=== PATIENT | female | born 1995 | race Caucasian/White ===

== ENCOUNTER 2018-09-02 15:02 | Inpatient (IN) ==
--- OUTSIDE RECORDS SUMMARY | 2018-09-02 15:05 | External Medical Summary | Continuity of Care Document ---
:1995 Author Name Fili Sesay, Provider Address Unavailable Unavailable , Care Team Providers Name Role Phone Unavailable Unavailable Unavailable Asher [email or web address] [email or web address] MUÑOZ M.D., ASHER Chacon Unavailable Unavailable Unavailable Unavailable Unavailable Problems ADD (attention deficit disorder) (314.00) (F98.8) Left hip pain (719.45) (M25.552) Contraceptive use (V25.40) (Z30.40) Fatigue (780.79) (R53.83) Depression with anxiety (300.4) (F41.8) Allergies and Adverse Reactions No Known Drug Allergies (Allergy) Medications Adderall 20 MG Oral Tablet; 1/2 to 1 tablet as needed , M.D. Refills: 0 Nexplanon IMPL , M.D. Refills: 0 Lidocaine 5 % External Patch; APPLY 1 PA TCH TO THE AFFECTED AREA AND LEAVE IN PLACE FOR 12 HOURS, THEN REMOVE AND LEAVE OFF FOR 12 HOURS. MARIKA Castaneda Start: 05-Jan-2018 Quantity: 1 30 Patch Box Refills: 0 Meloxicam 7.5 MG Oral Tablet; TAKE 1 TABLET DAILY WITH FOOD. Lázaro Muñoz Start: 05-Jan-2018 Quantity: 30 Refills: 5 Procedures Vitamin B12 Date: 19-Jul-2018 Vitamin D, 25-Hydroxy Date: 19-Jul-2018 TSH With Reflex to T4 Date: 19-Jul-2018 CBC No Diff Date: 19-Jul-2018 Basic Metabolic Panel Date: 19-Jul-2018 History of Hip Surgery Status: Completed Immunizations Immunizations not documented Family History Mother Family history of Anxiety (300.00) (F41.9) Status: Active Family history of depression (V17.0) (Z81.8) Status: Active Sister Family history of Anxiety (300.00) (F41.9) Status: Active Family history of depression (V17.0) (Z81.8) Status: Active Family history of Utdhqt-sb-vkvh transgender person (3 02.85) (F64.0) Status: Active Father Family history of depression (V17.0) (Z81.8) Status: Active Family history of PTSD (post-traumatic stress disorder) (309 .81) Status: Active (F43.10) Family history of hypertension (V17.49) (Z82.49) Status: Act emerald Family history of hyperlipidemia (V18.19) (Z83.438) Status: Active Social History - Smoking Status Never smoker Plan of Treatment Planned Observations Planned Goals not documented Results No Known Results Results not documented Encounters Appointment; Asher Muñoz M.D. 19-Jul-2018 14:20 Encounter Diagnosis: Problem not documented Appointment; Johanny Castaneda CRNP 05-Jan-2018 14:40 Encounter Diagnosis: Problem not documented
[2018-09-02] MEDS ORDERED: KETOROLAC TROMETHAMINE 15 MG/ML VIAL IV STA (15:48)
[2018-09-02 16:22] LABS: Basophils # (auto) 0.03 K/uL (0-0.2); Basophils % (auto) 0.8 %; Eosinophils # (auto) 0.05 K/uL (0-0.5); Eosinophils % (auto) 1.3 %; Hematocrit (blood only) 38.6 % (37-47); Hemoglobin 13.1 g/dL (12.0-16.0); Immature Granulocytes # (auto) 0.01 K/uL (0.00-0.02); Immature Granulocytes % (auto) 0.3 %; Lymphocytes # (auto) 1.25 K/uL (1.2-3.4); Lymphocytes % (auto) 31.3 %; Mean Corpuscular Hgb Conc 33.9 g/dL (32-36); Mean Corpuscular Volume 92.1 fL (80-100); Mean Platelet Volume 11.1 fL (7.4-10.4); Monocytes # (auto) 0.38 K/uL (0.11-0.59); Monocytes % (auto) 9.5 %; Neutrophils # (auto) 2.28 K/uL (1.4-6.5); Neutrophils % (auto) 56.8 %; Platelet Count 161 K/uL (130-400); RDW Standard Deviation 40.6 fL (36.4-46.3); Red Blood Count 4.19 M/uL (4.2-5.4)
[2018-09-02 16:37] LABS: Appearance Urine Clear (Clear); Bilirubin Urine Negative (Negative); Blood Urine Negative (Negative); Color Urine Yellow; Glucose Urine UA Negative (Negative); Ketones Urine Negative (Negative); Leukocyte Esterase Urine Negative (Negative); Nitrite Urine Negative (Negative); Protein Urine Negative (Negative); Specific Gravity Urine 1.015 (1.000-1.030); Urobilinogen Urine Negative (Negative)
[2018-09-02 16:39] LABS: Albumin Level 4.1 gm/dl (3.4-5.0); BUN Creatinine Ratio 13.9 (10-20); Calcium 9.2 mg/dl (8.5-10.1); Creatinine Clr Calc Pharmacy 122.3 ml/min; Est GFR (African American) 135.2; Est GFR (Non-African American) 116.6; Potassium 3.7 mmol/L (3.5-5.1)
[2018-09-02 16:42] LABS: Albumin Globulin Ratio 1.4 (0.9-2); Bilirubin,Total 0.9 mg/dl (0.2-1); Globulin 2.9 gm/dl (2.5-4.0)
[2018-09-02] MEDS ORDERED: MoRPHine SULFATE 10 MG/ML CARP/VIAL IV STA (19:12)
[2018-09-02] MEDS ORDERED: ONDANSETRON INJ 2 MG/ML 2 ML VIAL IV STA (19:12)
--- NOTE | 2018-09-02 19:17 | Ultrasound Report ---
ULTRASOUND OF THE PELVIS CLINICAL HISTORY: Pelvic pain during intercourse. COMPARISON STUDY: No priors. TECHNIQUE: Real-time, grayscale, and color flow sonography of the pelvis is performed both transabdom inally and endovaginally. Images are reviewed in the transverse and longitudinal planes. The endovagi nal examination was performed for better assessment of the adnexa. FINDINGS: Uterus: The uterus is normal in size and echotexture, measuring 8.4 x 3.7 x 4.2 cm. Endometrium: The endometrium is normal in appearance, and the endometrial stripe is normal in thickne ss measuring up to 0.6 cm. Ovaries: The ovaries are normal in size and morphology. The right ovary measures 3.0 x 2.0 x 2.5 cm a nd the left ovary measures 2.4 x 1.7 x 2.6 cm. There are bilateral ovarian follicles. Normal Doppler waveforms are shown within both ovaries. Pelvis: There is a moderate volume of complex free fluid in the cul-de-sac which appears to be center ed around the right ovary. This likely represents hemoperitoneum. A small volume of fluid is also see n in the abdomen is within Morison's pouch. IMPRESSION: 1. There is a moderate volume of complex free fluid in the pelvis, greatest around the right ovary an d the appearance is typical for hemoperitoneum. This may represent the sequelae of a ruptured hemorrh agic ovarian cyst. Correlation with beta hCG levels will be the essential, as a ruptured ectopic preg jn is the diagnosis of exclusion. 2. The uterus and left ovary are normal in appearance. 3. There is no sonographic evidence of ovarian torsion at the time of examination. Electronically signed by: Bakari Gomez M.D. 09/02/2018 7:16 PM
[2018-09-02 19:42] LABS: Pregnancy Test, Serum Negative (Negative)
[2018-09-02] MEDS ORDERED: fentaNYL citrate 100 MCG/2 ML VIAL IV STA (20:53)
[2018-09-02] MEDS ORDERED: SODIUM CHLORIDE 0.9% 1000ML 1,000 ML IV ONE (20:53)
[2018-09-02 21:11] LABS: Hematocrit (blood only) 34.8 % (37-47); Hemoglobin 11.9 g/dL (12.0-16.0); Mean Corpuscular Hgb Conc 34.2 g/dL (32-36); Mean Corpuscular Volume 92.3 fL (80-100); Mean Platelet Volume 10.8 fL (7.4-10.4); Platelet Count 164 K/uL (130-400); RDW Standard Deviation 40.3 fL (36.4-46.3); Red Blood Count 3.77 M/uL (4.2-5.4); White Blood Count 8.78 K/uL (4.8-10.8)
--- NOTE | 2018-09-02 21:25 | Emergency Department Note ---
History of Present Illness General Chief complaint: Pelvic Injury Stated complaint: VAGINAL PAIN/NAUSEA Source: patient Mode of arrival: ambulatory Limitations: no limitations History of Present Illness Maximum Pain Intensity: 8 This patient is a 22-year-old female who presents to the emergency department complaining of pelvic pain. The patient states that approximately 1 hour prior to arrival, she was having sexual intercourse and developed sharp pains in her vagina and pelvis. She states that it is worsened with any movements and rates the discomfort an 8/10. She states the pains are sharp. The pain does not radiate anywhere. She took 600 mg of ibuprofen prior to arrival. Patient does report she has had similar episodes of pain in the past, but they have gone away on their own. She states that she has seen WHARF TALLY CLERK in the past and they told her that she should be evaluated when she is having acute pain. She denies any history of ovarian cysts or other [employer]ARF TALLY CLERK issues. She did recently have a Nex planon placed. She denies any abnormal vaginal discharge. She states that her periods are typically irregular and she had a period earlier this month. Home Medications Home Medications Medication Instructions Recorded Confirmed Type dextroamphetamine-amphetamine 10 mg PO QAM PRN 09/02/18 09/02/18 History [Adderall XR] etonogestrel [Nexplanon] 0 mg SUBDERMAL DIRECTED 09/02/18 09/02/18 History ibuprofen 600 - 800 mg PO DIRECTED PRN 09/02/18 09/02/18 History meloxicam 7.5 mg PO DAILY PRN 09/02/18 09/02/18 History Allergies Allergy/AdvReac Type Severity Reaction Status Date / Time Milk Containing Products AdvReac Intermediate Gastrointestinal Verified 09/02/18 16:40 Upset Pork/Porcine Containing AdvReac Intermediate Gastrointestinal Verified 09/02/18 16:40 Products Upset Past Med/Surg History Medical History No known health problems Family History Other Family history non-contributory Social History marital status: single Current Living Situation: Other Current Living Situation Comment: Roomates current occupational status: student Feels Safe at Home: Yes Smoking Status: Never smoker Review of Systems A total of 10 systems reviewed and were otherwise negative Physical Exam Vital Signs Vital Signs - 24 hr 09/02/18 15:17 09/02/18 18:33 09/02/18 20:42 Temperature 36.6 C Temperature Source Oral Sepsis Recent Fever Within 48 Hours No Sepsis New/Unexplained Change in Mental Status No Sepsis Action Taken by Nursing No Action Required Pulse Rate 86 Pulse Rate [Finger] 78 71 Pulse Rate from SpO2 Sensor Pulse Rhythm Regular Pulse Strength Normal Respiratory Rate 20 18 Respiratory Effort / Characteristics Non-Labored Spontaneous Respiratory Depth Normal Respiratory Pattern Regular Blood Pressure 117/82 Blood Pressure [Right Arm] 107/63 106/68 Blood Pressure Mean 93 Blood Pressure Mean [Right Arm] 77 80 Pulse Oximetry 100 100 98 Oxygen Delivery Method Room Air Room Air Room Air 09/02/18 20:51 09/02/18 20:54 09/02/18 20:57 Temperature Temperature Source Sepsis Recent Fever Within 48 Hours Sepsis New/Unexplained Change in Mental Status Sepsis Action Taken by Nursing Pulse Rate Pulse Rate [Finger] 62 69 75 Pulse Rate from SpO2 Sensor Pulse Rhythm Pulse Strength Respiratory Rate 14 16 18 Respiratory Effort / Characteristics Respiratory Depth Respiratory Pattern Blood Pressure Blood Pressure [Right Arm] 93/49 L 105/64 105/64 Blood Pressure Mean Blood Pressure Mean [Right Arm] 63 77 77 Pulse Oximetry 98 98 98 Oxygen Delivery Method Room Air 09/02/18 21:00 09/02/18 22:00 09/02/18 23:25 Temperature Temperature Source Sepsis Recent Fever Within 48 Hours Sepsis New/Unexplained Change in Mental Status Sepsis Action Taken by Nursing Pulse Rate 79 Pulse Rate [Finger] 74 Pulse Rate from SpO2 Sensor 74 Pulse Rhythm Pulse Strength Respiratory Rate 19 15 15 Respiratory Effort / Characteristics Respiratory Depth Respiratory Pattern Blood Pressure 113/75 Blood Pressure [Right Arm] 104/75 Blood Pressure Mean 87 Blood Pressure Mean [Right Arm] 84 Pulse Oximetry 99 96 96 Oxygen Delivery Method Room Air Room Air VITALS: Vitals are noted on the nurse's note and reviewed by myself. Vital signs stable. GENERAL: This is a 22-year-old female, in mild distress secondary to pain, well- developed well-nourished. SKIN: The skin was without rashes. EYES: Pupils equal round and reactive to light and accommodation. MOUTH: Mucous membranes moist. NECK: Supple without nuchal rigidity. HEART: Regular rate and rhythm without murmurs gallops or rubs. LUNGS: Clear to auscultation bilaterally without wheezes, rales or rhonchi. ABDOMEN: Positive bowel sounds x 4. Moderate tenderness across lower abdomen. No guarding or rebound tenderness. PELVIC: Small amount of white vaginal discharge. No evidence of cervicitis. Tenderness throughout the lower abdomen on bimanual exam. NEURO: Patient was alert and oriented to person place and time. Course Reevaluation(s) Reevaluation #1: The patient was reevaluated after returning from ultrasound. At this time, she had developed severely worsening pain. She was lying flat in bed and reported that the pain was radiating to her right shoulder. Patient was ordered a dose of morphine and Zofran for this. Reevaluation #2: Patient was reevaluated after receiving the morphine and reports she is feeling slightly better, but is still having pain which is radiating into both sides of her chest. Pelvic exam was performed at this time. Reevaluation #3: I was contacted by nursing staff who stated that the patient had a presyncopal episode. Patient was reevaluated by myself. She stated that she became lightheaded and felt like she was going to pass out. The patient's blood pressure did briefly drop to 93/49 but on recheck was 105/64. An additional liter of fluids was ordered as well as a dose of fentanyl for the patient's pain. A repeat CBC was ordered. Consultations Consultation #1: Dr. Fuentes - WHAR[facility] TALLY CLERK Dr. Fuentes will evaluate the patient for admission/possible surgical intervention. Administered Medications Discontinued Medications Fentanyl Citrate (Fentanyl Citrate) 50 mcg IV NOW STA Stop: 09/02/18 20:54 Last Admin: 09/02/18 21:06 Dose: 50 mcg Documented by: [id number] Sodium Chloride (Nss 1000ml) 1,000 mls @ 999 mls/hr IV .Q1H1M ONE Stop: 09/02/18 21:53 Last Infusion: 09/02/18 22:22 Dose: 0 mls/hr Documented by: [id number] Admin: 09/02/18 21:07 Dose: 999 mls/hr Documented by: [id number] Ketorolac Tromethamine (Toradol) 15 mg IV NOW STA Stop: 09/02/18 15:49 Last Admin: 09/02/18 16:05 Dose: 15 mg Documented by: [id number] Morphine Sulfate (Morphine Sulfate) 6 mg IV NOW STA Stop: 09/02/18 19:13 Last Admin: 09/02/18 19:18 Dose: 6 mg Documented by: [id number] Ondansetron HCl (Zofran) 4 mg IV NOW STA Stop: 09/02/18 19:13 Last Admin: 09/02/18 19:19 Dose: 4 mg Documented by: [id number] Medical Decision Making Differential Diagnosis Differential diagnosis includes ruptured ectopic , ovarian cyst, ruptured ovarian cyst, ovarian torsion, PID, appendicitis, diverticulitis, among others. Home Medications Current Medication List: was personally reviewed by me Laboratory Data Attestation: I reviewed the patient's lab results. Result diagrams: 09/02/18 21:05 09/02/18 16:07 Lab Results 09/02/18 09/02/18 09/02/18 Range/Units 16:07 16:07 16:07 WBC 4.00 L (4.8-10.8) K/uL RBC 4.19 L (4.2-5.4) M/uL Hgb 13.1 (12.0-16.0) g/dL Hct 38.6 (37-47) % MCV 92.1 (80-100) fL MCH 31.3 (25-34) pg MCHC 33.9 (32-36) g/dL RDW Std Deviation 40.6 (36.4-46.3) fL RDW Coeff of Tyler 12.0 (11.5-14.5) % Plt Count 161 (130-400) K/uL MPV 11.1 H (7.4-10.4) fL Immature Gran % (Auto) 0.3 % Neut % (Auto) 56.8 % Lymph % (Auto) 31.3 % Rogers % (Auto) 9.5 % Eos % (Auto) 1.3 % Baso % (Auto) 0.8 % Immature Gran # (Auto) 0.01 (0.00-0.02) K/uL Neut # (Auto) 2.28 (1.4-6.5) K/uL Lymph # (Auto) 1.25 (1.2-3.4) K/uL Rogers # (Auto) 0.38 (0.11-0.59) K/uL Eos # (Auto) 0.05 (0-0.5) K/uL Baso # (Auto) 0.03 (0-0.2) K/uL Sodium 140 (136-145) mmol/L Potassium 3.7 (3.5-5.1) mmol/L Chloride 109 H (98-107) mmol/L Carbon Dioxide 24 (21-32) mmol/L Anion Gap 7.0 (3-11) BUN 10 (7-18) mg/dl Creatinine 0.74 (0.6-1.2) mg/dl Est Cr Clr Drug Dosing 122.3 ml/min Est GFR ( Amer) 135.2 Est GFR (Non-Af Amer) 116.6 BUN/Creatinine Ratio 13.9 (10-20) Glucose 62 L (70-99) mg/dl Calcium 9.2 (8.5-10.1) mg/dl Total Bilirubin 0.9 (0.2-1) mg/dl AST 22 (15-37) U/L ALT 30 (12-78) U/L Alkaline Phosphatase 53 (45-117) U/L Total Protein 7.0 (6.4-8.2) gm/dl Albumin 4.1 (3.4-5.0) gm/dl Globulin 2.9 (2.5-4.0) gm/dl Albumin/Globulin Ratio 1.4 (0.9-2) HCG, Qual (Negative) Urine Color Yellow Urine Appearance Clear (Clear) Urine pH 8.0 H (4.5-7.5) Ur Specific Carson 1.015 (1.000-1.030) Urine Protein Negative (Negative) Urine Glucose (UA) Negative (Negative) Urine Ketones Negative (Negative) Urine Blood Negative (Negative) Urine Nitrite Negative (Negative) Urine Bilirubin Negative (Negative) Urine Urobilinogen Negative (Negative) Ur Leukocyte Esterase Negative (Negative) POC Ur Test (NEG) Blood Type Antibody Screen Crossmatch 09/02/18 09/02/18 09/02/18 Range/Units 16:08 21:05 21:55 WBC 8.78 (4.8-10.8) K/uL RBC 3.77 L (4.2-5.4) M/uL Hgb 11.9 L (12.0-16.0) g/dL Hct 34.8 L (37-47) % MCV 92.3 (80-100) fL MCH 31.6 (25-34) pg MCHC 34.2 (32-36) g/dL RDW Std Deviation 40.3 (36.4-46.3) fL RDW Coeff of Tyler 12.0 (11.5-14.5) % Plt Count 164 (130-400) K/uL MPV 10.8 H (7.4-10.4) fL Immature Gran % (Auto) % Neut % (Auto) % Lymph % (Auto) % Rogers % (Auto) % Eos % (Auto) % Baso % (Auto) % Immature Gran # (Auto) (0.00-0.02) K/uL Neut # (Auto) (1.4-6.5) K/uL Lymph # (Auto) (1.2-3.4) K/uL Rogers # (Auto) (0.11-0.59) K/uL Eos # (Auto) (0-0.5) K/uL Baso # (Auto) (0-0.2) K/uL Sodium (136-145) mmol/L Potassium (3.5-5.1) mmol/L Chloride (98-107) mmol/L Carbon Dioxide (21-32) mmol/L Anion Gap (3-11) BUN (7-18) mg/dl Creatinine (0.6-1.2) mg/dl Est Cr Clr Drug Dosing ml/min Est GFR ( Amer) Est GFR (Non-Af Amer) BUN/Creatinine Ratio (10-20) Glucose (70-99) mg/dl Calcium (8.5-10.1) mg/dl Total Bilirubin (0.2-1) mg/dl AST (15-37) U/L ALT (12-78) U/L Alkaline Phosphatase (45-117) U/L Total Protein (6.4-8.2) gm/dl Albumin (3.4-5.0) gm/dl Globulin (2.5-4.0) gm/dl Albumin/Globulin Ratio (0.9-2) HCG, Qual Negative (Negative) Urine Color Urine Appearance (Clear) Urine pH (4.5-7.5) Ur Specific Carson (1.000-1.030) Urine Protein (Negative) Urine Glucose (UA) (Negative) Urine Ketones (Negative) Urine Blood (Negative) Urine Nitrite (Negative) Urine Bilirubin (Negative) Urine Urobilinogen (Negative) Ur Leukocyte Esterase (Negative) POC Ur Test (NEG) Blood Type O Positive Antibody Screen NEGATIVE Crossmatch See Detail 09/02/18 Range/Units Unknown WBC (4.8-10.8) K/uL RBC (4.2-5.4) M/uL Hgb (12.0-16.0) g/dL Hct (37-47) % MCV (80-100) fL MCH (25-34) pg MCHC (32-36) g/dL RDW Std Deviation (36.4-46.3) fL RDW Coeff of Tyler (11.5-14.5) % Plt Count (130-400) K/uL MPV (7.4-10.4) fL Immature Gran % (Auto) % Neut % (Auto) % Lymph % (Auto) % Rogers % (Auto) % Eos % (Auto) % Baso % (Auto) % Immature Gran # (Auto) (0.00-0.02) K/uL Neut # (Auto) (1.4-6.5) K/uL Lymph # (Auto) (1.2-3.4) K/uL Rogers # (Auto) (0.11-0.59) K/uL Eos # (Auto) (0-0.5) K/uL Baso # (Auto) (0-0.2) K/uL Sodium (136-145) mmol/L Potassium (3.5-5.1) mmol/L Chloride (98-107) mmol/L Carbon Dioxide (21-32) mmol/L Anion Gap (3-11) BUN (7-18) mg/dl Creatinine (0.6-1.2) mg/dl Est Cr Clr Drug Dosing ml/min Est GFR ( Amer) Est GFR (Non-Af Amer) BUN/Creatinine Ratio (10-20) Glucose (70-99) mg/dl Calcium (8.5-10.1) mg/dl Total Bilirubin (0.2-1) mg/dl AST (15-37) U/L ALT (12-78) U/L Alkaline Phosphatase (45-117) U/L Total Protein (6.4-8.2) gm/dl Albumin (3.4-5.0) gm/dl Globulin (2.5-4.0) gm/dl Albumin/Globulin Ratio (0.9-2) HCG, Qual (Negative) Urine Color Urine Appearance (Clear) Urine pH (4.5-7.5) Ur Specific Carson (1.000-1.030) Urine Protein (Negative) Urine Glucose (UA) (Negative) Urine Ketones (Negative) Urine Blood (Negative) Urine Nitrite (Negative) Urine Bilirubin (Negative) Urine Urobilinogen (Negative) Ur Leukocyte Esterase (Negative) POC Ur Test NEG (NEG) Blood Type Antibody Screen Crossmatch Imaging Data Attestation: I personally reviewed and interpreted this imaging study as follows: Radiologist's Impression: ULTRASOUND OF THE PELVIS FINDINGS: Uterus: The uterus is normal in size and echotexture, measuring 8.4 x 3.7 x 4.2 cm. Endometrium: The endometrium is normal in appearance, and the endometrial stripe is normal in thickness measuring up to 0.6 cm. Ovaries: The ovaries are normal in size and morphology. The right ovary measures 3.0 x 2.0 x 2.5 cm and the left ovary measures 2.4 x 1.7 x 2.6 cm. There are bilateral ovarian follicles. Normal Doppler waveforms are shown within both ovaries. Pelvis: There is a moderate volume of complex free fluid in the cul-de-sac which appears to be centered around the right ovary. This likely represents hemoperitoneum. A small volume of fluid is also seen in the abdomen is within Morison's pouch. IMPRESSION: 1. There is a moderate volume of complex free fluid in the pelvis, greatest around the right ovary and the appearance is typical for hemoperitoneum. This may represent the sequelae of a ruptured hemorrhagic ovarian cyst. Correlation with beta hCG levels will be the essential, as a ruptured ectopic is the diagnosis of exclusion. 2. The uterus and left ovary are normal in appearance. 3. There is no sonographic evidence of ovarian torsion at the time of examination. Blood Pressure Blood Pressure Findings: Normal blood pressure MDM Narrative The patient is a 22-year-old female who presents today complaining of severe pelvic pain. Labs revealed no leukocytosis, anemia or concerning electrolyte abnormalities. Urinalysis not suggestive of infection, urine test negative. Pelvic ultrasound was obtained and reveals evidence of a ruptured hemorrhagic ovarian cyst. The patient had worsening pain throughout her stay as well as referred pain to the shoulder and had a presyncopal episode. H&H were repeated at this time and the hemoglobin was found to have dropped from 13.1- 11.9. [facility] TALLY CLERK was consulted at this time to evaluate the patient for admission/possible surgical intervention. I did speak with the patient's mother to explain to her all of the findings so far as well as the treatment plan. Impression & Plan Hemoperitoneum, Pelvic pain Discharge Plan Visit Data *Final* Discharge Date/Time: 09/02/18 23:47 Chief Complaint: Pelvic Injury Stated Complaint: VAGINAL PAIN/NAUSEA ED Provider: Horacio De Anda ED Midlevel Provider: Jazz Kunz Discharge Problem: Hemoperitoneum, Pelvic pain Patient Disposition: Admitted As Inpatient Discharge Instructions Interventions: ED Discharge Assessment Last Done: 09/02/18 23:25
[2018-09-02] MEDS ORDERED: SODIUM CHLORIDE 0.9% 250 ML IV PRN (21:36)
--- NOTE | 2018-09-02 23:08 | Anesthesiology Consultation ---
Date of Service September 02, 2018 History Height/Weight Height: 5 ft 8 in Weight: 68.7 kg Allergies Allergy/AdvReac Type Severity Reaction Status Date / Time Milk Containing Products AdvReac Intermediate Gastrointestinal Verified 09/02/18 16:40 Upset Pork/Porcine Containing AdvReac Intermediate Gastrointestinal Verified 09/02/18 16:40 Products Upset Medications Home Medications Medication Instructions Recorded Confirmed Last Taken dextroamphetamine-amphetamine 10 mg PO QAM PRN 09/02/18 09/02/18 Unknown [Adderall XR] etonogestrel [Nexplanon] 0 mg SUBDERMAL DIRECTED 09/02/18 09/02/18 Unknown ibuprofen 600 - 800 mg PO DIRECTED PRN 09/02/18 09/02/18 09/02/18 14:30 meloxicam 7.5 mg PO DAILY PRN 09/02/18 09/02/18 Unknown Past Medical History Medical History No known health problems Past Family History Family History Other Family history non-contributory Social History Smoking Status: Never smoker Physical Exam Vital Signs Last Vital Signs Temp 36.6 C 09/02/18 15:17 Pulse 74 09/02/18 22:00 Resp 15 09/02/18 22:00 BP 104/75 09/02/18 22:00 Pulse Ox 96 09/02/18 22:00
[2018-09-02] MEDS ORDERED: ONDANSETRON INJ 2 MG/ML 2 ML VIAL IV PRN (23:14)
[2018-09-02] MEDS ORDERED: LACTATED RINGER'S 1,000 ML IV SCH (23:15)
[2018-09-02] MEDS ORDERED: MIDAZOLAM HCL 1 MG/ML 2ML VIAL ONE (23:23)
[2018-09-02] MEDS ORDERED: fentaNYL citrate 100 MCG/2 ML VIAL ONE ×2 (23:24)
[2018-09-02] MEDS ORDERED: LIDOCAINE HCL 2% 2 ML VIAL/AMP(20MG/ML) INFIL ONE (23:28)
[2018-09-02] MEDS ORDERED: PROPOFOL IV EMULSION 10 MG/ML 20 ML VIAL IV ONE (23:29)
[2018-09-02] MEDS ORDERED: NEOSTIGMINE METHYLSULFATE 5 MG/5 ML SYR ONE (23:29)
[2018-09-02] MEDS ORDERED: ROCURONIUM BROMIDE 10 MG/ML 5 ML VIAL ONE (23:29)
[2018-09-02] MEDS ORDERED: ONDANSETRON INJ 2 MG/ML 2 ML VIAL ONE (23:29)
[2018-09-02] MEDS ORDERED: DEXAMETHASONE SOD INJ 4 MG/ML VIAL ONE (23:29)
[2018-09-02] MEDS ORDERED: GLYCOPYRROLATE 0.2 MG/ML VIAL ONE (23:29)
[2018-09-02] MEDS ORDERED: BUPIVACAINE 0.5 % 5 MG/1 ML MPF 30ML VIAL ONE (23:31)
--- NOTE | 2018-09-02 23:56 | History and Physical Report ---
DATE OF ADMISSION: 09/02/2018 CHIEF COMPLAINT: Pelvic pain and abdominal pain. HISTORY OF PRESENT ILLNESS: The patient is a 22-year-old female 0, para 0 who presents today after having pain that developed at approximately 1:00 this afternoon after experiencing a sudden onset of pain after and during intercourse. The pain worsened becoming an 8/10 on a pain scale. She took Motrin prior to arrival, but this did not relieve her pain. She has had several episodes of pain like this in the past with no treatment at that time. She does not have any problems with any nausea or vomiting. Her blood pressure has been stable. She did have a significant amount of pain that was relieved temporarily with some fentanyl; however, the pain subsequently returned. Her test was negative. Her hemoglobin initially was 13.1, hematocrit 38.6, and a white count of 4.0. Her hemoglobin dropped on observation with IV fluids to 11.9 and 34.8. Social History: non-smoker, denies alcohol, occasional marijuana Family History: non-contributor Allergies: Milk, pork Surgery: left hip Urine was negative. Her GC chlamydia cultures were negative. There was no vaginal bleeding. Her electrolytes are all within normal limits. Ultrasound reveals normal size uterus, normal endometrium, the ovaries both measure normal. No evidence of torsion. There is a moderate amount of fluid, complex free fluid in the cul-de-sac, mostly around the right ovary, possible hemoperitoneum with blood, small amount of fluid that is seen in the abdomen within Morison's pouch. PHYSICAL EXAMINATION: VITAL SIGNS: Her vitals are stable. She is afebrile. Her blood pressure is 104/75, her pulse ox is 96 on room air, her pulse is 74. GENERAL: She is in visible discomfort. She is alert and oriented x3. ABDOMEN: Tender in all 4 quadrants with guarding, no rebound. EXTREMITIES: Within normal limits. No edema. HEART: Regular rate and rhythm. LUNGS: Clear to auscultation. ASSESSMENT: Probable ruptured hemorrhagic corpus luteum cyst. PLAN: We will go to the OR with operative laparoscopy for evacuation of hemoperitoneum and control of any bleeding from an ovary. KELLEE
[2018-09-03] MEDS ORDERED: ACETAMINOPHEN 1,000 MG/100 ML VIAL IV PRN (01:36)
[2018-09-03] MEDS ORDERED: OXYCODONE/ACETAMINOPHEN 5mg/325mg TAB PO PRN (01:36)
[2018-09-03] MEDS ORDERED: KETOROLAC 30 MG/ML VIAL IV PRN (01:36)
[2018-09-03] MEDS ORDERED: IBUPROFEN 600 MG TAB PO PRN (01:36)
[2018-09-03] MEDS ORDERED: MoRPHine SULFATE 2 MG/ML CARP IV PRN (01:36)
[2018-09-03] MEDS ORDERED: MoRPHine SULFATE 4 MG/ML 1 ML CARP\\VIAL IV PRN (01:36)
[2018-09-03] MEDS ORDERED: ACETAMINOPHEN 325 MG TAB PO PRN (01:36)
--- NOTE | 2018-09-03 01:42 | Post Operative Brief Note ---
Immediate Post Op Note v1 Date of Surgery September 03, 2018 Pre & Post Diagnosis Operation Date: 09/02/18 23:30 Pre-Op Diagnosis: Probable ruptured hemorrhagic corpus luteum cyst, hemoperitoneum Post-Op Diagnosis: ruptured hemorrhagic corpus luteum cyst, hemoperitoneum Procedure Operation Date: 09/02/18 23:30 Actual Procedures p Diagnostic Laparoscopy, Evacuation of hematoperitenoum(Not Applicable) - Ismael Fuentes MD Surgeon Ismael Fuentes MD Dialysis Technician none Estimated Blood Loss 400 Findings Consistent with Post-Op Diagnosis Drains Carpenter Catheter
[2018-09-03] MEDS ORDERED: LACTATED RINGER'S 1,000 ML IV SCH (01:45)
--- NOTE | 2018-09-03 03:06 | Operative Report ---
DATE OF OPERATION: 09/03/2018 PREOPERATIVE DIAGNOSIS: Abdominal pain, probable ruptured ovarian corpus luteum cyst and hemoperitoneum. POSTOPERATIVE DIAGNOSIS: Abdominal pain, probable ruptured ovarian corpus luteum cyst and hemoperitoneum, hemorrhagic corpus luteum cyst with hemoperitoneum. SURGEON: Ismael Fuentes MD EXTENDED INSURANCE CLERK: None. ANESTHESIA: General. ESTIMATED BLOOD LOSS: 400 mL. URINE OUTPUT: 500 mL. TOTAL FLUIDS: 500 mL. CLINICAL HISTORY: The patient is a 22-year-old female 0, para 0, presents to the ER after having noted abdominal pain and pelvic pain approximately 1:00 p.m. yesterday following intercourse. The patient presented to the ER, she was given some pain medication and the pain resolved and then began to come back. Ultrasound revealed fluid in the abdomen consistent with a hemoperitoneum. The patient was consented for a surgical procedure including a laparoscopy, possible right ovarian removal and possible laparotomy. A timeout was called prior to the start of the procedure and no antibiotics were given. DESCRIPTION OF PROCEDURE: Under satisfactory general anesthesia, the patient was prepped and draped in usual sterile fashion. Carpenter catheter was placed and a single tooth tenaculum was then placed on the anterior lip of the cervix and acorn intracervical uterine manipulator was then used. Attention was then directed abdominally. Approximately 5 mL of 0.5% Marcaine were instilled suprapubically and infraumbilically. Stab wound was made with a #15 knife blade and a 5 mm trocar under direct visualization was inserted. The contents of the pelvic and abdominal cavity were noted to contain a significant amount of blood including blood up to the liver edge. The patient was placed in slight Trendelenburg position. A midline 5 mm probe was then inserted and the suction journeyman patternmaker was then used to suction out copious amounts of blood and irrigation. The ovary on the right contained a hemorrhagic cyst and a bipolar cautery was then used. A third trocar was inserted on the left hand side and using the grasper, the ovary was grasped and the bipolar Kleppingers were then used to cauterize the bleeding point. The contents of the pelvic cavity were then suctioned and irrigated to clear. The patient was stable. 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 All remaining instruments were then removed. The gas was then allowed to escape. The 3 incisions were then closed with 3-0 deep sutures for the fascia followed by 4-0 Monocryl suture. The vaginal instruments were then removed. The patient was then placed flat. She was transferred to a stretcher in stable condition. EBL 500 mL. She was taken to recovery room in stable condition. I attest to the content of the Intraoperative Record and any orders documented therein. Any exception s are noted below.
[2018-09-03] MEDS ORDERED: MELOXICAM 7.5 MG TAB PO PRN (04:20)
--- NOTE | 2018-09-03 07:13 | Anesthesiology Progress Note ---
Date of Service September 03, 2018 Anesthesia Post Procedure Vital Signs Vital Signs: Temp Pulse Pulse Pulse Pulse Resp BP 09/03/18 05:45 37 C 108 H 18 09/03/18 04:43 37 C 86 18 09/03/18 03:40 37.1 C 73 18 09/03/18 03:10 37 C 78 18 09/03/18 02:40 36.4 C L 73 18 09/03/18 02:25 36.8 C 63 14 09/03/18 02:15 60 16 09/03/18 02:05 62 14 09/03/18 01:55 78 15 09/03/18 01:47 36.2 C L 79 20 09/02/18 23:25 15 09/02/18 22:00 74 15 09/02/18 21:00 79 19 113/75 09/02/18 20:57 75 18 09/02/18 20:54 69 16 09/02/18 20:51 62 14 09/02/18 20:42 71 09/02/18 18:33 78 18 09/02/18 15:17 36.6 C 86 20 117/82 BP BP Pulse Ox 09/03/18 05:45 103/54 L 98 09/03/18 04:43 104/58 L 98 09/03/18 03:40 115/61 100 09/03/18 03:10 113/65 100 09/03/18 02:40 113/62 100 09/03/18 02:25 109/63 100 09/03/18 02:15 110/62 100 09/03/18 02:05 111/66 100 09/03/18 01:55 134/69 100 09/03/18 01:47 122/89 98 09/02/18 23:25 96 09/02/18 22:00 104/75 96 09/02/18 21:00 99 09/02/18 20:57 105/64 98 09/02/18 20:54 105/64 98 09/02/18 20:51 93/49 L 98 09/02/18 20:42 106/68 98 09/02/18 18:33 107/63 100 09/02/18 15:17 100 Pain Intensity Vaginal: Pain Intensity: 8 Abdomen: Pain Intensity: 5 Transfer of Care Handoff Completed per policy Notes Mental Status: alert / awake / arousable and participated in evaluation Patient Amnestic to Procedure: Yes Nausea / Vomiting: adequately controlled Pain: adequately controlled Airway Patency, RR, SpO2: stable & adequate BP & HR: stable & adequate Hydration State: stable & adequate Anesthetic Complications: no major complications apparent
--- NOTE | 2018-09-03 07:18 | Surgery Progress Note ---
Date of Service September 03, 2018 Subjective much less pain slept through night passing gas tolerating liquids Carpenter clear urine with good output Physical Exam Constitutional: WD/WN, vitals as above comfortable Gastrointestinal (Abdomen): incisions dry/intact abdomen soft non-tender ne edema neg Pearl's CBC pending tent d/c after lunch today Results & Data Vital Signs (Past 12 Hours) Vital Signs Temp Pulse Pulse Pulse Pulse Resp BP 09/03/18 05:45 37 C 108 H 18 09/03/18 04:43 37 C 86 18 09/03/18 03:40 37.1 C 73 18 09/03/18 03:10 37 C 78 18 09/03/18 02:40 36.4 C L 73 18 09/03/18 02:25 36.8 C 63 14 09/03/18 02:15 60 16 09/03/18 02:05 62 14 09/03/18 01:55 78 15 09/03/18 01:47 36.2 C L 79 20 09/02/18 23:25 15 09/02/18 22:00 74 15 09/02/18 21:00 79 19 113/75 09/02/18 20:57 75 18 09/02/18 20:54 69 16 09/02/18 20:51 62 14 09/02/18 20:42 71 BP BP Pulse Ox 09/03/18 05:45 103/54 L 98 09/03/18 04:43 104/58 L 98 09/03/18 03:40 115/61 100 09/03/18 03:10 113/65 100 09/03/18 02:40 113/62 100 09/03/18 02:25 109/63 100 09/03/18 02:15 110/62 100 09/03/18 02:05 111/66 100 09/03/18 01:55 134/69 100 09/03/18 01:47 122/89 98 09/02/18 23:25 96 09/02/18 22:00 104/75 96 09/02/18 21:00 99 09/02/18 20:57 105/64 98 09/02/18 20:54 105/64 98 09/02/18 20:51 93/49 L 98 09/02/18 20:42 106/68 98
[2018-09-03 09:02] LABS: Hematocrit (blood only) 28.7 % (37-47); Hemoglobin 9.8 g/dL (12.0-16.0); Mean Corpuscular Hgb Conc 34.1 g/dL (32-36); Mean Corpuscular Volume 92.9 fL (80-100); Mean Platelet Volume 10.6 fL (7.4-10.4); Platelet Count 165 K/uL (130-400); RDW Coefficient of Variation 12.1 % (11.5-14.5); Red Blood Count 3.09 M/uL (4.2-5.4)
[2018-09-03] MEDS: OXYCODONE/ACETAMINOPHEN 5mg/325mg TAB PO PRN ×2 (09:13→13:07)
--- NOTE | 2018-09-03 11:02 | Anesthesiology Progress Note ---
Date of Service September 03, 2018 Anesthesia Post Procedure Vital Signs Vital Signs: Temp Pulse Pulse Pulse Pulse Resp BP 09/03/18 07:28 37.1 C 72 16 09/03/18 05:45 37 C 108 H 18 09/03/18 04:43 37 C 86 18 09/03/18 03:40 37.1 C 73 18 09/03/18 03:10 37 C 78 18 09/03/18 02:40 36.4 C L 73 18 09/03/18 02:25 36.8 C 63 14 09/03/18 02:15 60 16 09/03/18 02:05 62 14 09/03/18 01:55 78 15 09/03/18 01:47 36.2 C L 79 20 09/02/18 23:25 15 09/02/18 22:00 74 15 09/02/18 21:00 79 19 113/75 09/02/18 20:57 75 18 09/02/18 20:54 69 16 09/02/18 20:51 62 14 09/02/18 20:42 71 09/02/18 18:33 78 18 09/02/18 15:17 36.6 C 86 20 117/82 BP BP Pulse Ox 09/03/18 07:28 110/60 09/03/18 05:45 103/54 L 98 09/03/18 04:43 104/58 L 98 09/03/18 03:40 115/61 100 09/03/18 03:10 113/65 100 09/03/18 02:40 113/62 100 09/03/18 02:25 109/63 100 09/03/18 02:15 110/62 100 09/03/18 02:05 111/66 100 09/03/18 01:55 134/69 100 09/03/18 01:47 122/89 98 09/02/18 23:25 96 09/02/18 22:00 104/75 96 09/02/18 21:00 99 09/02/18 20:57 105/64 98 09/02/18 20:54 105/64 98 09/02/18 20:51 93/49 L 98 09/02/18 20:42 106/68 98 09/02/18 18:33 107/63 100 09/02/18 15:17 100 Pain Intensity Vaginal: Pain Intensity: 8 Abdomen: Pain Intensity: 5 Transfer of Care Handoff Completed per policy Notes Mental Status: alert / awake / arousable Patient Amnestic to Procedure: Yes Nausea / Vomiting: adequately controlled Pain: adequately controlled Airway Patency, RR, SpO2: stable & adequate BP & HR: stable & adequate Hydration State: stable & adequate Anesthetic Complications: no major complications apparent Notes: POD #1 doing well. VSS
[2018-09-03 12:30] LABS: Hematocrit (blood only) 28.7 % (37-47)
--- NOTE | 2018-09-03 13:11 | Obstetrical Progress Note ---
Date of Service September 03, 2018 Subjective Postop check Patient is seen and examined Feels well, no complaints Pain is under control with meds No CP/ SOB/ Dizziness/ N&V/ VB/ Leg pain OOB to BR and hallway Tolerating regular diet Multiple questions about surgery incisions Explained about the surgery and findings per op note Discussed postop care, what to expect, when to call and f/u visit Vital Signs Temp Pulse Pulse Resp BP Pulse Ox 09/03/18 07:28 37.1 C 72 16 110/60 09/03/18 05:45 37 C 108 H 18 103/54 L 98 09/03/18 04:43 37 C 86 18 104/58 L 98 09/03/18 03:40 37.1 C 73 18 115/61 100 09/03/18 03:10 37 C 78 18 113/65 100 09/03/18 02:40 36.4 C L 73 18 113/62 100 09/03/18 02:25 36.8 C 63 14 109/63 100 09/03/18 02:15 60 16 110/62 100 09/03/18 02:05 62 14 111/66 100 09/03/18 01:55 78 15 134/69 100 09/03/18 01:47 36.2 C L 79 20 122/89 98 09/03/18 09/03/18 09/02/18 Range/Units 12:20 08:49 Unknown WBC 5.30 (4.8-10.8) K/uL RBC 3.09 L (4.2-5.4) M/uL Hgb 10.0 L 9.8 L (12.0-16.0) g/dL Hct 28.7 L 28.7 L (37-47) % MCV 92.9 (80-100) fL MCH 31.7 (25-34) pg MCHC 34.1 (32-36) g/dL RDW Std Deviation 41.0 (36.4-46.3) fL RDW Coeff of [place] 12.1 (11.5-14.5) % Plt Count 165 (130-400) K/uL MPV 10.6 H (7.4-10.4) fL Immature Gran % (Auto) % Neut % (Auto) % Lymph % (Auto) % [place] % (Auto) % Eos % (Auto) % Baso % (Auto) % Immature Gran # (Auto) (0.00-0.02) K/uL Neut # (Auto) (1.4-6.5) K/uL Lymph # (Auto) (1.2-3.4) K/uL [place] # (Auto) (0.11-0.59) K/uL Eos # (Auto) (0-0.5) K/uL Baso # (Auto) (0-0.2) K/uL Sodium (136-145) mmol/L Potassium (3.5-5.1) mmol/L Chloride (98-107) mmol/L Carbon Dioxide (21-32) mmol/L Anion Gap (3-11) BUN (7-18) mg/dl Creatinine (0.6-1.2) mg/dl Est Cr Clr Drug Dosing ml/min Est GFR ( Amer) Est GFR (Non-Af Amer) BUN/Creatinine Ratio (10-20) Glucose (70-99) mg/dl Calcium (8.5-10.1) mg/dl Total Bilirubin (0.2-1) mg/dl AST (15-37) U/L ALT (12-78) U/L Alkaline Phosphatase (45-117) U/L Total Protein (6.4-8.2) gm/dl Albumin (3.4-5.0) gm/dl Globulin (2.5-4.0) gm/dl Albumin/Globulin Ratio (0.9-2) HCG, Qual (Negative) Urine Color Urine Appearance (Clear) Urine pH (4.5-7.5) Ur Specific [place] (1.000-1.030) Urine Protein (Negative) Urine Glucose (UA) (Negative) Urine Ketones (Negative) Urine Blood (Negative) Urine Nitrite (Negative) Urine Bilirubin (Negative) Urine Urobilinogen (Negative) Ur Leukocyte Esterase (Negative) POC Ur Test NEG (NEG) C.trachomatis RNA N.gonorrhoeae RNA Blood Type Antibody Screen Crossmatch 09/02/18 09/02/18 09/02/18 Range/Units 21:55 21:05 20:27 WBC 8.78 (4.8-10.8) K/uL RBC 3.77 L (4.2-5.4) M/uL Hgb 11.9 L (12.0-16.0) g/dL Hct 34.8 L (37-47) % MCV 92.3 (80-100) fL MCH 31.6 (25-34) pg MCHC 34.2 (32-36) g/dL RDW Std Deviation 40.3 (36.4-46.3) fL RDW Coeff of Tyler 12.0 (11.5-14.5) % Plt Count 164 (130-400) K/uL MPV 10.8 H (7.4-10.4) fL Immature Gran % (Auto) % Neut % (Auto) % Lymph % (Auto) % [place] % (Auto) % Eos % (Auto) % Baso % (Auto) % Immature Gran # (Auto) (0.00-0.02) K/uL Neut # (Auto) (1.4-6.5) K/uL Lymph # (Auto) (1.2-3.4) K/uL Hutchinson # (Auto) (0.11-0.59) K/uL Eos # (Auto) (0-0.5) K/uL Baso # (Auto) (0-0.2) K/uL Sodium (136-145) mmol/L Potassium (3.5-5.1) mmol/L Chloride (98-107) mmol/L Carbon Dioxide (21-32) mmol/L Anion Gap (3-11) BUN (7-18) mg/dl Creatinine (0.6-1.2) mg/dl Est Cr Clr Drug Dosing ml/min Est GFR ( Amer) Est GFR (Non-Af Amer) BUN/Creatinine Ratio (10-20) Glucose (70-99) mg/dl Calcium (8.5-10.1) mg/dl Total Bilirubin (0.2-1) mg/dl AST (15-37) U/L ALT (12-78) U/L Alkaline Phosphatase (45-117) U/L Total Protein (6.4-8.2) gm/dl Albumin (3.4-5.0) gm/dl Globulin (2.5-4.0) gm/dl Albumin/Globulin Ratio (0.9-2) HCG, Qual (Negative) Urine Color Urine Appearance (Clear) Urine pH (4.5-7.5) Ur Specific [place] (1.000-1.030) Urine Protein (Negative) Urine Glucose (UA) (Negative) Urine Ketones (Negative) Urine Blood (Negative) Urine Nitrite (Negative) Urine Bilirubin (Negative) Urine Urobilinogen (Negative) Ur Leukocyte Esterase (Negative) POC Ur Test (NEG) C.trachomatis RNA Pending N.gonorrhoeae RNA Pending Blood Type O Positive Antibody Screen NEGATIVE Crossmatch See Detail 09/02/18 09/02/18 09/02/18 Range/Units 16:08 16:07 16:07 WBC (4.8-10.8) K/uL RBC (4.2-5.4) M/uL Hgb (12.0-16.0) g/dL Hct (37-47) % MCV (80-100) fL MCH (25-34) pg MCHC (32-36) g/dL RDW Std Deviation (36.4-46.3) fL RDW Coeff of Tyler (11.5-14.5) % Plt Count (130-400) K/uL MPV (7.4-10.4) fL Immature Gran % (Auto) % Neut % (Auto) % Lymph % (Auto) % [place] % (Auto) % Eos % (Auto) % Baso % (Auto) % Immature Gran # (Auto) (0.00-0.02) K/uL Neut # (Auto) (1.4-6.5) K/uL Lymph # (Auto) (1.2-3.4) K/uL [place] # (Auto) (0.11-0.59) K/uL Eos # (Auto) (0-0.5) K/uL Baso # (Auto) (0-0.2) K/uL Sodium 140 (136-145) mmol/L Potassium 3.7 (3.5-5.1) mmol/L Chloride 109 H (98-107) mmol/L Carbon Dioxide 24 (21-32) mmol/L Anion Gap 7.0 (3-11) BUN 10 (7-18) mg/dl Creatinine 0.74 (0.6-1.2) mg/dl Est Cr Clr Drug Dosing 122.3 ml/min Est GFR ( Amer) 135.2 Est GFR (Non-Af Amer) 116.6 BUN/Creatinine Ratio 13.9 (10-20) Glucose 62 L (70-99) mg/dl Calcium 9.2 (8.5-10.1) mg/dl Total Bilirubin 0.9 (0.2-1) mg/dl AST 22 (15-37) U/L ALT 30 (12-78) U/L Alkaline Phosphatase 53 (45-117) U/L Total Protein 7.0 (6.4-8.2) gm/dl Albumin 4.1 (3.4-5.0) gm/dl Globulin 2.9 (2.5-4.0) gm/dl Albumin/Globulin Ratio 1.4 (0.9-2) HCG, Qual Negative (Negative) Urine Color Yellow Urine Appearance Clear (Clear) Urine pH 8.0 H (4.5-7.5) Ur Specific [place] 1.015 (1.000-1.030) Urine Protein Negative (Negative) Urine Glucose (UA) Negative (Negative) Urine Ketones Negative (Negative) Urine Blood Negative (Negative) Urine Nitrite Negative (Negative) Urine Bilirubin Negative (Negative) Urine Urobilinogen Negative (Negative) Ur Leukocyte Esterase Negative (Negative) POC Ur Test (NEG) C.trachomatis RNA N.gonorrhoeae RNA Blood Type Antibody Screen Crossmatch 09/02/18 Range/Units 16:07 WBC 4.00 L (4.8-10.8) K/uL RBC 4.19 L (4.2-5.4) M/uL Hgb 13.1 (12.0-16.0) g/dL Hct 38.6 (37-47) % MCV 92.1 (80-100) fL MCH 31.3 (25-34) pg MCHC 33.9 (32-36) g/dL RDW Std Deviation 40.6 (36.4-46.3) fL RDW Coeff of [place] 12.0 (11.5-14.5) % Plt Count 161 (130-400) K/uL MPV 11.1 H (7.4-10.4) fL Immature Gran % (Auto) 0.3 % Neut % (Auto) 56.8 % Lymph % (Auto) 31.3 % [place] % (Auto) 9.5 % Eos % (Auto) 1.3 % Baso % (Auto) 0.8 % Immature Gran # (Auto) 0.01 (0.00-0.02) K/uL Neut # (Auto) 2.28 (1.4-6.5) K/uL Lymph # (Auto) 1.25 (1.2-3.4) K/uL [place] # (Auto) 0.38 (0.11-0.59) K/uL Eos # (Auto) 0.05 (0-0.5) K/uL Baso # (Auto) 0.03 (0-0.2) K/uL Sodium (136-145) mmol/L Potassium (3.5-5.1) mmol/L Chloride (98-107) mmol/L Carbon Dioxide (21-32) mmol/L Anion Gap (3-11) BUN (7-18) mg/dl Creatinine (0.6-1.2) mg/dl Est Cr Clr Drug Dosing ml/min Est GFR ( Amer) Est GFR (Non-Af Amer) BUN/Creatinine Ratio (10-20) Glucose (70-99) mg/dl Calcium (8.5-10.1) mg/dl Total Bilirubin (0.2-1) mg/dl AST (15-37) U/L ALT (12-78) U/L Alkaline Phosphatase (45-117) U/L Total Protein (6.4-8.2) gm/dl Albumin (3.4-5.0) gm/dl Globulin (2.5-4.0) gm/dl Albumin/Globulin Ratio (0.9-2) HCG, Qual (Negative) Urine Color Urine Appearance (Clear) Urine pH (4.5-7.5) Ur Specific [place] (1.000-1.030) Urine Protein (Negative) Urine Glucose (UA) (Negative) Urine Ketones (Negative) Urine Blood (Negative) Urine Nitrite (Negative) Urine Bilirubin (Negative) Urine Urobilinogen (Negative) Ur Leukocyte Esterase (Negative) POC Ur Test (NEG) C.trachomatis RNA N.gonorrhoeae RNA Blood Type Antibody Screen Crossmatch PE: General: Alert, orientedx3, NAD CVS: S1S2 RRR Lungs: CTAB Abd: soft, NT, ND, BS+, Incisions C/D/I No VB Ext: NT, no edema, SCD's on AP: 22 yo female s/p Lap evacuation of blood, pod#0 VSS Afebrile doing well H&H stable Desires d/c home f/u in office Discussed when to call Results & Data Vital Signs (Past 12 Hours) Vital Signs Temp Pulse Pulse Resp BP Pulse Ox 09/03/18 07:28 37.1 C 72 16 110/60 09/03/18 05:45 37 C 108 H 18 103/54 L 98 09/03/18 04:43 37 C 86 18 104/58 L 98 09/03/18 03:40 37.1 C 73 18 115/61 100 09/03/18 03:10 37 C 78 18 113/65 100 09/03/18 02:40 36.4 C L 73 18 113/62 100 09/03/18 02:25 36.8 C 63 14 109/63 100 09/03/18 02:15 60 16 110/62 100 09/03/18 02:05 62 14 111/66 100 09/03/18 01:55 78 15 134/69 100 09/03/18 01:47 36.2 C L 79 20 122/89 98
[2018-09-05 04:54] LABS: Chlamydia Trach RNA NOT DETECTED (NOT DETECTED); GC (Neis gonorrhoeae) RNA NOT DETECTED (NOT DETECTED)
--- NOTE | 2018-09-08 23:43 | Discharge Summary ---
REASON FOR ADMISSION AND HOSPITAL COURSE: The patient is a 22-year-old female 0, para 0 who presents to the Emergency Room with acute abdominal pain, right-sided predominantly. Ultrasound revealed evidence of hemoperitoneum and possible ruptured hemorrhagic cyst. The patient was taken to the operating room where a diagnostic and operative laparoscopy was performed. She had hemoperitoneum that was diagnosed with approximately 500 mL of blood in the belly. She had a hemorrhagic cyst that appeared to be bleeding on the right ovary. This was cauterized with a Kleppinger forceps. Evacuation of the hematoma with copious irrigation was done. The patient subsequently was stable. She was discharged on 09/03/2018 the following day in stable condition. Home going instructions were given. CONDITION ON DISCHARGE: Stable. MEDICATIONS: Included Percocet and Motrin for pain. FOLLOWUP: Will be 1 week in the office.
--- NOTE | 2018-10-01 01:18 | Discharge Summary ---
ADDENDUM The patient had a laparoscopy performed due to ruptured ovarian corpus luteum cyst. The ovary was grasped and bipolar Kleppinger forceps were used to cauterize the bleeding point on the ovary which was on the inferior margin of the ovary.
== END 2018-09-03 14:08 | disposition home or self-care (01) | DRG 742 ==
LOC: ED 15:02 → ASU 23:35 → 4N 23:36 → ASU 23:47

== ENCOUNTER 2018-09-04 02:12 | Observation (INO) ==
[2018-09-04] MEDS ORDERED: ONDANSETRON INJ 2 MG/ML 2 ML VIAL IV STA (02:29)
[2018-09-04] MEDS ORDERED: MoRPHine SULFATE 4 MG/ML 1 ML CARP\\VIAL IV PRN ×2 (02:29→04:22)
[2018-09-04] MEDS ORDERED: SODIUM CHLORIDE 0.9% 1000ML 1,000 ML IV ONE (02:29)
[2018-09-04 02:48] LABS: Basophils # (auto) 0.03 K/uL (0-0.2); Basophils % (auto) 0.3 %; Eosinophils # (auto) 0.05 K/uL (0-0.5); Eosinophils % (auto) 0.4 %; Hematocrit (blood only) 26.3 % (37-47); Hemoglobin 9.1 g/dL (12.0-16.0); Immature Granulocytes # (auto) 0.02 K/uL (0.00-0.02); Immature Granulocytes % (auto) 0.2 %; Lymphocytes # (auto) 2.42 K/uL (1.2-3.4); Lymphocytes % (auto) 21.6 %; Mean Corpuscular Hgb Conc 34.6 g/dL (32-36); Mean Platelet Volume 10.7 fL (7.4-10.4); Monocytes # (auto) 0.98 K/uL (0.11-0.59); Monocytes % (auto) 8.8 %; Neutrophils # (auto) 7.68 K/uL (1.4-6.5); Neutrophils % (auto) 68.7 %; Platelet Count 178 K/uL (130-400); RDW Coefficient of Variation 12.1 % (11.5-14.5); Red Blood Count 2.86 M/uL (4.2-5.4); White Blood Count 11.18 K/uL (4.8-10.8)
[2018-09-04 02:53] LABS: Appearance Urine Cloudy (Clear); Bacteria Urine Automated Negative (Negative); Bilirubin Urine Negative (Negative); Blood Urine 3+ (Negative); Color Urine Yellow; Epithelial Cell Urine Auto >30 /lpf (0-5); Glucose Urine UA Negative (Negative); Ketones Urine Negative (Negative); Leukocyte Esterase Urine Trace (Negative); Nitrite Urine Negative (Negative); Protein Urine Negative (Negative); Specific Gravity Urine 1.012 (1.000-1.030); Urobilinogen Urine Negative (Negative)
[2018-09-04 02:54] LABS: iSTAT Creatinine 0.7 mg/dl; iSTAT Hemoglobin 8.5 g/dl (12.0-16.0); iSTAT Ionized Calcium 1.14 mmol/l; iSTAT Potassium 3.5 mEq/L (3.3-5.0)
[2018-09-04 03:08] LABS: Albumin Level 3.8 gm/dl (3.4-5.0); BUN Creatinine Ratio 16.4 (10-20); Calcium 8.3 mg/dl (8.5-10.1); Creatinine Clr Calc Pharmacy 116.1 ml/min; Est GFR (African American) 126.8; Est GFR (Non-African American) 109.4; Potassium 3.5 mmol/L (3.5-5.1)
[2018-09-04 03:11] LABS: Albumin Globulin Ratio 1.3 (0.9-2); Bilirubin,Total 0.6 mg/dl (0.2-1); Globulin 2.9 gm/dl (2.5-4.0); Total Protein 6.7 gm/dl (6.4-8.2)
[2018-09-04] MEDS ORDERED: IOVERSOL 100ml IV PRN (03:14)
[2018-09-04 03:34] LABS: RBC Urine Automated 0-4 /hpf (0-4)
--- NOTE | 2018-09-04 03:56 | Emergency Department Note ---
History of Present Illness General Chief complaint: Abdominal Pain Stated complaint: ABD PAIN History of Present Illness Maximum Pain Intensity: 7 This 22-year-old presents to the ER complaining of abdominal and shoulder pain who just had surgery for hemorrhagic cyst Location: Abdomen and left shoulder Quality: Severe Severity: Severe Duration: Tonight Timing: Tonight Context: Pain persisted and patient came in Modifying factors: better with nothing; worse with activity Patient had surgery yesterday for hemorrhagic cyst that was bleeding. This was cauterized. She was discharged earlier this evening. Patient took a Percocet and then OxyIR. Patient states the pain was so severe she called the OB and was advised to come to the ER. Patient denies chest pain, dyspnea, fevers, cough, congestion. No new injury. Home Medications Home Medications Medication Instructions Recorded Confirmed Type Nexplanon 0 mg SUBDERMAL DIRECTED 09/02/18 09/04/18 History dextroamphetamine-amphetamine 10 mg PO QAM PRN 09/02/18 09/04/18 History [Adderall XR] meloxicam 7.5 mg PO DAILY PRN 09/02/18 09/04/18 History ibuprofen 600 mg PO Q6H PRN #30 tab 09/03/18 09/04/18 Rx oxycodone-acetaminophen [Percocet] 1 tab PO Q4H 4 Days #14 tab 09/03/18 09/04/18 Rx Allergies Allergy/AdvReac Type Severity Reaction Status Date / Time Milk Containing Products AdvReac Intermediate Gastrointestinal Verified 09/02/18 16:40 Upset Pork/Porcine Containing AdvReac Intermediate Gastrointestinal Verified 09/02/18 16:40 Products Upset Past Med/Surg History Medical History No known health problems Family History Other Family history non-contributory Social History Preferred Language: Portuguese Communication Ability: Effective Beliefs That Will Affect Care: None marital status: single Current Living Situation: Alone Current Living Situation Comment: Roomates current occupational status: student Feels Safe at Home: Yes Smoking Status: Never smoker Second Hand Exposure: No Hx Alcohol Use: Yes Alcohol type: beer and wine Hx Substance Use: Yes substance use type: marijuana Review of Systems All systems reviewed & are unremarkable except as noted in HPI & below Physical Exam Vital Signs Vital Signs - 24 hr 09/04/18 02:15 09/04/18 03:24 Temperature 36.7 C Temperature Source Oral Sepsis Recent Fever Within 48 Hours No Sepsis Action Taken by Nursing No Action Required Pulse Rate 84 Pulse Rate [Right Finger] 91 H Respiratory Rate 16 18 Respiratory Depth Normal Blood Pressure 105/63 Blood Pressure [Left Arm] 105/58 L Blood Pressure Mean 77 Blood Pressure Mean [Left Arm] 73 Blood Pressure Position [Left Arm] Standing Pulse Oximetry 100 98 Oxygen Delivery Method Room Air Room Air VITALS: Vitals are noted on the nurse's note and reviewed by myself. Vital signs stable. GENERAL: White female writhing in pain, in no acute distress, nondiaphoretic, well-developed well-nourished. SKIN: The skin was without rashes, erythema, edema, or bruising. There is no tenting of the skin. Capillary reflex less than 2 seconds. HEAD: Normocephalic atraumatic. EARS: External auditory canals clear EYES: Pupils equal round and reactive to light and accommodation. Conjunctivae without injection, sclerae without icterus. Extraocular movements intact. NOSE: Patent, turbinates without inflammation or discharge. MOUTH: Mucous membranes moist. Pharynx without erythema or exudate. Uvula midline. Airway patent. Tongue does not deviate. NECK: Supple without nuchal rigidity. No lymphadenopathy. No thyromegaly. Cervical spine is nontender. No JVD. HEART: Regular rate and rhythm without murmurs gallops or rubs. LUNGS: Clear to auscultation bilaterally without wheezes, rales or rhonchi. No retractions or accessory muscle use. ABDOMEN: Positive bowel sounds x 4. Normal tympanic percussion. Soft, diffusely tender to palpation with incisional sites intact without signs of infection, without masses or organomegaly. Forbes sign negative. No guarding or rebound tenderness. No CVA tenderness MUSCULOSKELETAL: No muscle atrophy, erythema, or edema noted. NEURO: Patient was alert and oriented to person place and time. Normal sensation to light and sharp touch. No focal neurological deficits. Course Administered Medications Discontinued Medications Sodium Chloride (Nss 1000ml) 1,000 mls @ 999 mls/hr IV .Q1H1M ONE Stop: 09/04/18 03:29 Last Infusion: 09/04/18 04:09 Dose: 0 mls/hr Documented by: [id number] Admin: 09/04/18 02:51 Dose: 999 mls/hr Documented by: [id number] Ioversol (Optiray 320 100ml) 94 ml IV ONCE PRN PRN Reason: Interaction Checking Stop: 09/08/18 03:13 Last Admin: 09/04/18 03:15 Dose: 1 ml Documented by: [id number] Magnesium Hydroxide (Milk Of Magnesia) 30 ml PO NOW STA Stop: 09/04/18 04:27 Last Admin: 09/04/18 04:28 Dose: 30 ml Documented by: [id number] Magnesium Hydroxide (Milk Of Magnesia) Confirm Administered Dose 30 ml .ROUTE .STK-MED ONE Stop: 09/04/18 04:26 Last Admin: 09/04/18 04:29 Dose: Not Given Documented by: [id number] Morphine Sulfate (Morphine Sulfate) 4 mg IV Q15M PRN PRN Reason: Pain Stop: 09/18/18 02:28 Last Admin: 09/04/18 02:45 Dose: 4 mg Documented by: [id number] Ondansetron HCl (Zofran) 4 mg IV NOW STA Stop: 09/04/18 02:30 Last Admin: 09/04/18 02:45 Dose: 4 mg Documented by: [id number] Medical Decision Making Medical Records Attestation: I reviewed the patient's medical records. Home Medications Current Medication List: was personally reviewed by me Laboratory Data Attestation: I reviewed the patient's lab results. Result diagrams: 09/04/18 02:37 09/04/18 02:37 Lab Results 09/04/18 09/04/18 09/04/18 Range/Units 02:37 02:37 02:37 WBC 11.18 H (4.8-10.8) K/uL RBC 2.86 L (4.2-5.4) M/uL Hgb 9.1 L (12.0-16.0) g/dL POC Hgb (12.0-16.0) g/dl Hct 26.3 L (37-47) % POC Hct (37-47) % MCV 92.0 (80-100) fL MCH 31.8 (25-34) pg MCHC 34.6 (32-36) g/dL RDW Std Deviation 41.0 (36.4-46.3) fL RDW Coeff of [place] 12.1 (11.5-14.5) % Plt Count 178 (130-400) K/uL MPV 10.7 H (7.4-10.4) fL Immature Gran % (Auto) 0.2 % Neut % (Auto) 68.7 % Lymph % (Auto) 21.6 % [place] % (Auto) 8.8 % Eos % (Auto) 0.4 % Baso % (Auto) 0.3 % Immature Gran # (Auto) 0.02 (0.00-0.02) K/uL Neut # (Auto) 7.68 H (1.4-6.5) K/uL Lymph # (Auto) 2.42 (1.2-3.4) K/uL [place] # (Auto) 0.98 H (0.11-0.59) K/uL Eos # (Auto) 0.05 (0-0.5) K/uL Baso # (Auto) 0.03 (0-0.2) K/uL POC Sodium (135-144) mEq/L Sodium 138 (136-145) mmol/L POC Potassium (3.3-5.0) mEq/L Potassium 3.5 (3.5-5.1) mmol/L POC Chloride (101-112) mEq/L Chloride 110 H (98-107) mmol/L Carbon Dioxide 21 (21-32) mmol/L POC Total CO2 (24-31) mEq/l Anion Gap 7.0 (3-11) POC Anion Gap (16-25) mmol/L POC BUN (7-18) mg/dl BUN 13 (7-18) mg/dl Creatinine 0.78 (0.6-1.2) mg/dl POC Creatinine mg/dl Est Cr Clr Drug Dosing 116.1 ml/min Est GFR ( Amer) 126.8 Est GFR (Non-Af Amer) 109.4 BUN/Creatinine Ratio 16.4 (10-20) Glucose 96 (70-99) mg/dl POC Glucose (other) (70-99) mg/dl Calcium 8.3 L (8.5-10.1) mg/dl POC Ioniz Calcium Berny mmol/l Total Bilirubin 0.6 (0.2-1) mg/dl AST 14 L (15-37) U/L ALT 23 (12-78) U/L Alkaline Phosphatase 47 (45-117) U/L Total Protein 6.7 (6.4-8.2) gm/dl Albumin 3.8 (3.4-5.0) gm/dl Globulin 2.9 (2.5-4.0) gm/dl Albumin/Globulin Ratio 1.3 (0.9-2) Lipase 124 (73-393) U/L Urine Color Yellow Urine Appearance Cloudy A (Clear) Urine pH 6.0 (4.5-7.5) Ur Specific [place] 1.012 (1.000-1.030) Urine Protein Negative (Negative) Urine Glucose (UA) Negative (Negative) Urine Ketones Negative (Negative) Urine Blood 3+ H (Negative) Urine Nitrite Negative (Negative) Urine Bilirubin Negative (Negative) Urine Urobilinogen Negative (Negative) Ur Leukocyte Esterase Trace H (Negative) Urine WBC (Auto) 1-5 (0-5) /hpf Urine RBC (Auto) 0-4 (0-4) /hpf U Hyaline Cast (Auto) 1-5 (0-5) /lpf U Epithel Cells (Auto) >30 H (0-5) /lpf Urine Bacteria (Auto) Negative (Negative) Urine Yeast Not Reportable POC Ur Test (NEG) 09/04/18 09/04/18 Range/Units 02:37 02:40 WBC (4.8-10.8) K/uL RBC (4.2-5.4) M/uL Hgb (12.0-16.0) g/dL POC Hgb 8.5 L (12.0-16.0) g/dl Hct (37-47) % POC Hct 25 L (37-47) % MCV (80-100) fL MCH (25-34) pg MCHC (32-36) g/dL RDW Std Deviation (36.4-46.3) fL RDW Coeff of [place] (11.5-14.5) % Plt Count (130-400) K/uL MPV (7.4-10.4) fL Immature Gran % (Auto) % Neut % (Auto) % Lymph % (Auto) % [place] % (Auto) % Eos % (Auto) % Baso % (Auto) % Immature Gran # (Auto) (0.00-0.02) K/uL Neut # (Auto) (1.4-6.5) K/uL Lymph # (Auto) (1.2-3.4) K/uL [place] # (Auto) (0.11-0.59) K/uL Eos # (Auto) (0-0.5) K/uL Baso # (Auto) (0-0.2) K/uL POC Sodium 138 (135-144) mEq/L Sodium (136-145) mmol/L POC Potassium 3.5 (3.3-5.0) mEq/L Potassium (3.5-5.1) mmol/L POC Chloride 105 (101-112) mEq/L Chloride (98-107) mmol/L Carbon Dioxide (21-32) mmol/L POC Total CO2 19 L (24-31) mEq/l Anion Gap (3-11) POC Anion Gap 18.0 (16-25) mmol/L POC BUN 12 (7-18) mg/dl BUN (7-18) mg/dl Creatinine (0.6-1.2) mg/dl POC Creatinine 0.7 mg/dl Est Cr Clr Drug Dosing ml/min Est GFR ( Amer) Est GFR (Non-Af Amer) BUN/Creatinine Ratio (10-20) Glucose (70-99) mg/dl POC Glucose (other) 103 H (70-99) mg/dl Calcium (8.5-10.1) mg/dl POC Ioniz Calcium Berny 1.14 mmol/l Total Bilirubin (0.2-1) mg/dl AST (15-37) U/L ALT (12-78) U/L Alkaline Phosphatase (45-117) U/L Total Protein (6.4-8.2) gm/dl Albumin (3.4-5.0) gm/dl Globulin (2.5-4.0) gm/dl Albumin/Globulin Ratio (0.9-2) Lipase (73-393) U/L Urine Color Urine Appearance (Clear) Urine pH (4.5-7.5) Ur Specific [place] (1.000-1.030) Urine Protein (Negative) Urine Glucose (UA) (Negative) Urine Ketones (Negative) Urine Blood (Negative) Urine Nitrite (Negative) Urine Bilirubin (Negative) Urine Urobilinogen (Negative) Ur Leukocyte Esterase (Negative) Urine WBC (Auto) (0-5) /hpf Urine RBC (Auto) (0-4) /hpf U Hyaline Cast (Auto) (0-5) /lpf U Epithel Cells (Auto) (0-5) /lpf Urine Bacteria (Auto) (Negative) Urine Yeast POC Ur Test NEG (NEG) Imaging Data Attestation: I personally reviewed and interpreted this imaging study as follows: MDM Narrative Prior records/ancillary studies reviewed. Triage Nursing notes reviewed. Additional history obtained from family. The patient's history was concerning for abdominal pain. Differential diagnosis: Etiologies such as appendicitis, diverticulitis, PUD, biliary pathology, UTI, pancreatitis, obstruction, mesenteric ischemia, aortic pathology, infections, inflammatory bowel disease, renal colic, as well as others were entertained. Physical examination findings: As above. ER treatment provided: Morphine, Zofran IV On reassessment the patient felt better. Diagnostics interpreted by me: The labs revealed anemia, negative hCG Imaging studies: CT ABDOMEN & PELVIS With Contrast: There is a small amount of pneumoperitoneum underlying the hemidiaphragms. Primary consideration is residual gas from suspected operative procedure. Please correlate clinically. If there is no history of recent operative procedure, bowel perforation should be a diagnostic consideration. There is subcutaneous emphysema with associated fat stranding in the inferior anterior pelvic wall. Findings suggest recent operative procedure. Please correlate clinically. In addition, there is scattered extraperitoneal pelvic fat stranding noted anteriorly and laterally suggesting edema or postsurgical changes related to suspected anterior pelvic surgical procedure. Relative hyperdense free fluid in the pelvis is presumed residual hemorrhagic products from reported cyst rupture. Prominent stool in ascending and transverse colon. There is fluid distention of multiple loops of small bowel in the inferior abdomen and pelvis. Findings suggest enteritis, presumably postoperative over inflammatory or infectious. No evidence for high-grade bowel obstruction. The liver, gallbladder, pancreas, spleen, adrenal glands and kidneys are unremarkable. No acute osseous abnormality. Radiologist: Bayron Bernabe MD Consultation: A consultation was placed with the OB Dr. De Oliveira. The case was discussed and diagnostics were reviewed. The patient was evaluated in the ER for further treatment. Exam and history seem consistent with postsurgical pain and constipation. OB was consulted and will evaluate the patient. They were admitted to their service. Family is agreeable to treatment plan. By the evaluation outlined above emergent etiologies such as appendicitis, diverticulitis, PUD, biliary pathology, UTI, pancreatitis, obstruction, mesenteric ischemia, aortic pathology, infections, inflammatory bowel disease, renal colic, as well as others were deemed relatively unlikely. The pt informed about the findings as listed above. All questions were answered and pleased with the treatment. Case reviewed with my attending The chart was completed utilizing [employer] Speech voice recognition software. Grammatical errors, random word insertions, pronoun errors, and incomplete se ntences are an occassional consequence of this system due to software limitations, ambient noise, and hardware issues. Any formal questions or concerns about the content, text, or information contained within the body of this dictation should be directly addressed to the physician assistant passenger locomotive engineer for cla rification. Impression & Plan Postoperative pain Discharge Plan Visit Data Chief Complaint: Abdominal Pain Stated Complaint: ABD PAIN ED Provider: Neftali Resendiz ED Midlevel Provider: Saida Kennedy Discharge Problem: Postoperative pain Patient Disposition: Being Evaluated by Surgeon Condition: Fair Forms Stand Alone Forms: [facility] Prescriptions Prescriptions: No Action meloxicam 7.5 mg Tablet 7.5 mg PO DAILY PRN (Reason: Pain) RF: 0 dextroamphetamine-amphetamine [Adderall XR] 10 mg Capsule,Extended Release 24hr 10 mg PO QAM PRN (Reason: HIGH STRESS DAYS) RF: 0 Nexplanon 68 mg Implant SUBDERMAL DIRECTED RF: 0 oxycodone-acetaminophen [Percocet] 5-325 mg Tablet 1 tab PO Q4H 4 Days Qty: 14 RF: 0 ibuprofen 600 mg tablet 600 mg PO Q6H PRN (Reason: pain) Qty: 30 RF: 2 Referrals Referrals: PCP,NO [Primary Care Provider] -
[2018-09-04] MEDS ORDERED: DEXTROAMPHETAMINE AMPHETAMINE 10 MG PO PRN ×2 (04:20→06:36)
[2018-09-04] MEDS ORDERED: MAGNESIUM HYDROXIDE SUSP 30 ML UDC ONE (04:25)
[2018-09-04] MEDS ORDERED: MAGNESIUM HYDROXIDE SUSP 30 ML UDC PO STA (04:26)
[2018-09-04] MEDS ORDERED: OXYCODONE/ACETAMINOPHEN 5mg/325mg TAB PO SCH (04:30)
--- NOTE | 2018-09-04 04:42 | History & Physical Report ---
Date of Service September 04, 2018 Assessment & Plan (1) Postoperative pain: 22 yo s/p Laprasocopic evacuation of blood for ruptured CL cyst on 09/03 am Being admitted for pain control/ observation VSS Afebrile CT with postop changes Plan to observe, monitor, repeat labs, bowel regimen, reevaluate Consider surgery consult if no improvement (2) S/P laparoscopic procedure: History of Present Illness Primary Care Provider: NO PCP Patient is a 22 yo G0 female who is s/o Laparoscopy evacuation of blood for ruptured corpus luteum on 09/03 am and d/c'd home in the afternoon Her pain got worse last night not responding to PO Percoset/ Motrin It is mainly upper abdomen/ shoulder pain No fever /chills/ N&V/ Dizziness She has been tolerating PO/ Regular food Flatus+, no BM since 09/[address] scan which showed postop changes, stool in colon She is being admitted for observation, pain meds Allergies Allergy/AdvReac Type Severity Reaction Status Date / Time Milk Containing Products AdvReac Intermediate Gastrointestinal Verified 09/02/18 16:40 Upset Pork/Porcine Containing AdvReac Intermediate Gastrointestinal Verified 09/02/18 16:40 Products Upset Home Medications Home Medications Medication Instructions Recorded Confirmed Type Nexplanon 0 mg SUBDERMAL DIRECTED 09/02/18 09/04/18 History dextroamphetamine-amphetamine 10 mg PO QAM PRN 09/02/18 09/04/18 History [Adderall XR] meloxicam 7.5 mg PO DAILY PRN 09/02/18 09/04/18 History ibuprofen 600 mg PO Q6H PRN #30 tab 09/03/18 09/04/18 Rx oxycodone-acetaminophen [Percocet] 1 tab PO Q4H 4 Days #14 tab 09/03/18 09/04/18 Rx Patient History Medical History No known health problems Family History Other Family history non-contributory Social History Preferred Language: [place]i Communication Ability: Effective Beliefs That Will Affect Care: None marital status: single Current Living Situation: Alone Current Living Situation Comment: Roomates current occupational status: student Feels Safe at Home: Yes Smoking Status: Never smoker Second Hand Exposure: No Hx Alcohol Use: Yes Alcohol type: beer and wine Hx Substance Use: Yes substance use type: marijuana Review of Systems All systems reviewed & are unremarkable except as noted in HPI & below Physical Exam Constitutional: WD/WN, vitals as above + ill appearing and + in distress Gastrointestinal (Abdomen): normal bowel sounds, soft, nontender, no hepatosplenomegaly Abd: soft, NT, ND, BS+, Incisions C/D/I Musculoskeletal: Ext: NT, no edema Genitourinary: NO VB, pad dry Results & Data Vital Signs (Past 12 Hours) Vital Signs Temp Pulse Pulse Resp BP BP Pulse Ox 09/04/18 03:24 91 H 18 105/58 L 98 09/04/18 02:15 36.7 C 84 16 105/63 100 Laboratory Results Lab Results 09/04/18 09/04/18 09/04/18 Range/Units 02:37 02:37 02:37 WBC 11.18 H (4.8-10.8) K/uL RBC 2.86 L (4.2-5.4) M/uL Hgb 9.1 L (12.0-16.0) g/dL POC Hgb (12.0-16.0) g/dl Hct 26.3 L (37-47) % POC Hct (37-47) % MCV 92.0 (80-100) fL MCH 31.8 (25-34) pg MCHC 34.6 (32-36) g/dL RDW Std Deviation 41.0 (36.4-46.3) fL RDW Coeff of [place] 12.1 (11.5-14.5) % Plt Count 178 (130-400) K/uL MPV 10.7 H (7.4-10.4) fL Immature Gran % (Auto) 0.2 % Neut % (Auto) 68.7 % Lymph % (Auto) 21.6 % [place] % (Auto) 8.8 % Eos % (Auto) 0.4 % Baso % (Auto) 0.3 % Immature Gran # (Auto) 0.02 (0.00-0.02) K/uL Neut # (Auto) 7.68 H (1.4-6.5) K/uL Lymph # (Auto) 2.42 (1.2-3.4) K/uL [place] # (Auto) 0.98 H (0.11-0.59) K/uL Eos # (Auto) 0.05 (0-0.5) K/uL Baso # (Auto) 0.03 (0-0.2) K/uL POC Sodium (135-144) mEq/L Sodium 138 (136-145) mmol/L POC Potassium (3.3-5.0) mEq/L Potassium 3.5 (3.5-5.1) mmol/L POC Chloride (101-112) mEq/L Chloride 110 H (98-107) mmol/L Carbon Dioxide 21 (21-32) mmol/L POC Total CO2 (24-31) mEq/l Anion Gap 7.0 (3-11) POC Anion Gap (16-25) mmol/L POC BUN (7-18) mg/dl BUN 13 (7-18) mg/dl Creatinine 0.78 (0.6-1.2) mg/dl POC Creatinine mg/dl Est Cr Clr Drug Dosing 116.1 ml/min Est GFR ( Amer) 126.8 Est GFR (Non-Af Amer) 109.4 BUN/Creatinine Ratio 16.4 (10-20) Glucose 96 (70-99) mg/dl POC Glucose (other) (70-99) mg/dl Calcium 8.3 L (8.5-10.1) mg/dl POC Ioniz Calcium Berny mmol/l Total Bilirubin 0.6 (0.2-1) mg/dl AST 14 L (15-37) U/L ALT 23 (12-78) U/L Alkaline Phosphatase 47 (45-117) U/L Total Protein 6.7 (6.4-8.2) gm/dl Albumin 3.8 (3.4-5.0) gm/dl Globulin 2.9 (2.5-4.0) gm/dl Albumin/Globulin Ratio 1.3 (0.9-2) Lipase 124 (73-393) U/L Urine Color Yellow Urine Appearance Cloudy A (Clear) Urine pH 6.0 (4.5-7.5) Ur Specific [place] 1.012 (1.000-1.030) Urine Protein Negative (Negative) Urine Glucose (UA) Negative (Negative) Urine Ketones Negative (Negative) Urine Blood 3+ H (Negative) Urine Nitrite Negative (Negative) Urine Bilirubin Negative (Negative) Urine Urobilinogen Negative (Negative) Ur Leukocyte Esterase Trace H (Negative) Urine WBC (Auto) 1-5 (0-5) /hpf Urine RBC (Auto) 0-4 (0-4) /hpf U Hyaline Cast (Auto) 1-5 (0-5) /lpf U Epithel Cells (Auto) >30 H (0-5) /lpf Urine Bacteria (Auto) Negative (Negative) Urine Yeast Not Reportable POC Ur Test (NEG) 09/04/18 09/04/18 Range/Units 02:37 02:40 WBC (4.8-10.8) K/uL RBC (4.2-5.4) M/uL Hgb (12.0-16.0) g/dL POC Hgb 8.5 L (12.0-16.0) g/dl Hct (37-47) % POC Hct 25 L (37-47) % MCV (80-100) fL MCH (25-34) pg MCHC (32-36) g/dL RDW Std Deviation (36.4-46.3) fL RDW Coeff of [place] (11.5-14.5) % Plt Count (130-400) K/uL MPV (7.4-10.4) fL Immature Gran % (Auto) % Neut % (Auto) % Lymph % (Auto) % [place] % (Auto) % Eos % (Auto) % Baso % (Auto) % Immature Gran # (Auto) (0.00-0.02) K/uL Neut # (Auto) (1.4-6.5) K/uL Lymph # (Auto) (1.2-3.4) K/uL [place] # (Auto) (0.11-0.59) K/uL Eos # (Auto) (0-0.5) K/uL Baso # (Auto) (0-0.2) K/uL POC Sodium 138 (135-144) mEq/L Sodium (136-145) mmol/L POC Potassium 3.5 (3.3-5.0) mEq/L Potassium (3.5-5.1) mmol/L POC Chloride 105 (101-112) mEq/L Chloride (98-107) mmol/L Carbon Dioxide (21-32) mmol/L POC Total CO2 19 L (24-31) mEq/l Anion Gap (3-11) POC Anion Gap 18.0 (16-25) mmol/L POC BUN 12 (7-18) mg/dl BUN (7-18) mg/dl Creatinine (0.6-1.2) mg/dl POC Creatinine 0.7 mg/dl Est Cr Clr Drug Dosing ml/min Est GFR ( Amer) Est GFR (Non-Af Amer) BUN/Creatinine Ratio (10-20) Glucose (70-99) mg/dl POC Glucose (other) 103 H (70-99) mg/dl Calcium (8.5-10.1) mg/dl POC Ioniz Calcium [place] 1.14 mmol/l Total Bilirubin (0.2-1) mg/dl AST (15-37) U/L ALT (12-78) U/L Alkaline Phosphatase (45-117) U/L Total Protein (6.4-8.2) gm/dl Albumin (3.4-5.0) gm/dl Globulin (2.5-4.0) gm/dl Albumin/Globulin Ratio (0.9-2) Lipase (73-393) U/L Urine Color Urine Appearance (Clear) Urine pH (4.5-7.5) Ur Specific [place] (1.000-1.030) Urine Protein (Negative) Urine Glucose (UA) (Negative) Urine Ketones (Negative) Urine Blood (Negative) Urine Nitrite (Negative) Urine Bilirubin (Negative) Urine Urobilinogen (Negative) Ur Leukocyte Esterase (Negative) Urine WBC (Auto) (0-5) /hpf Urine RBC (Auto) (0-4) /hpf U Hyaline Cast (Auto) (0-5) /lpf U Epithel Cells (Auto) (0-5) /lpf Urine Bacteria (Auto) (Negative) Urine Yeast POC Ur Test NEG (NEG)
[2018-09-04] MEDS ORDERED: METOCLOPRAMIDE HCL INJ 5 MG/ML 2 ML VIAL ONE (05:00)
[2018-09-04] MEDS ORDERED: MAGNESIUM HYDROXIDE SUSP 30 ML UDC PO ONE (06:59)
[2018-09-04] MEDS: METOCLOPRAMIDE HCL INJ 5 MG/ML 2 ML VIAL IV SCH ×4 (07:47→22:35)
[2018-09-04] MEDS: LACTATED RINGER'S 1,000 ML IV SCH ×3 (07:57→22:35)
[2018-09-04] MEDS: DOCUSATE SODIUM 100 MG CAP PO SCH ×2 (07:57→20:25)
[2018-09-04] MEDS ORDERED: DOCUSATE SODIUM 100 MG CAP PO SCH (09:00)
--- NOTE | 2018-09-04 09:24 | CT Scan Report ---
CT SCAN OF THE ABDOMEN AND PELVIS WITH IV CONTRAST CLINICAL HISTORY: Generalized abdominal pain. COMPARISON STUDY: Pelvic ultrasound dated 09/02/2018. TECHNIQUE: Following the IV administration of 94 cc of Optiray 320, CT scan of the abdomen and pelvi s is performed from the lung bases to the proximal femora. Images are reviewed in the axial, sagittal , and coronal planes. IV contrast was administered without complication. A dose lowering technique wa s utilized adhering to the principles of ALARA. CT DOSE: 459.28 mGy.cm FINDINGS: Lung bases: The heart is normal in size and without pericardial effusion. The lung bases are clear. Liver: The contrast-enhanced liver is normal in size, contour, and attenuation. There is no intrahepa tic biliary ductal dilatation. The hepatic veins and portal veins are patent. Gallbladder: Unremarkable. Spleen: Normal in size and attenuation. Pancreas: Unremarkable. Adrenal glands: Unremarkable. Kidneys: The contrast enhanced kidneys are normal in size and without hydronephrosis. The kidneys enh ance symmetrically. Abdominal vasculature: The abdominal aorta is normal in course and caliber. Bowel: There is moderate colonic fecal retention. No bowel obstruction is seen. There are mildly dist ended and fluid-filled loops of small bowel. The appendix is well-visualized and normal. Peritoneum: Trace intraperitoneal free air is seen below the diaphragm and in the ventral pelvis. The re is a moderate volume of hyperdense fluid in the pelvis consistent with hemoperitoneum. Trace hemop eritoneum is seen along the undersurface of the liver. Lymphadenopathy: None. Pelvic viscera: The the bladder wall appears circumferentially thickened. The uterus is normal as vis ualized. There are left ovarian follicles. Extraperitoneal hemorrhage is seen along the ventral pelvi c wall. Skeletal structures: No lytic or blastic lesions are seen. There is a hemitransitional right lumbosac ral segment. Soft tissues: There is subcutaneous soft tissue induration and trace fluid/hemorrhage identified with in the ventral pelvis. There are small foci of subcutaneous gas within the ventral pelvic wall. IMPRESSION: 1. There is a small volume of intraperitoneal free air seen below the diaphragm and the pelvis. If th ere has been recent surgery this is likely on a postoperative basis. If there has been no history of surgery then perforated viscus becomes the diagnosis of exclusion and clinical correlation will be es sential. 2. There is a moderate volume of complex hyperdense fluid in the pelvis consistent with hemoperitoneu m. Trace blood products are also seen along the inferior margin of the liver. 3. There is induration with trace fluid/hemorrhage and small foci of subcutaneous gas within the vent ral pelvic wall. There is also extraperitoneal hemorrhage in the ventral pelvis. Again, this suggests recent surgery and clinical correlation will be required. 4. Moderate constipation. 5. There is nonspecific bladder wall thickening. Correlate clinically and with urinalysis for evidenc e of cystitis. 6. There is no bowel obstruction. Mildly distended and fluid-filled loops of small bowel likely repre sent a mild ileus. Electronically signed by: Bakari Gomez M.D. 09/04/2018 9:22 AM
--- NOTE | 2018-09-04 11:26 | Obstetrical Progress Note ---
Date of Service September 04, 2018 Subjective Patient is seen and examined. She feels much better, no complaints, mildly sore. Ambulating without dizziness Voiding without difficulty Flatus + BM needs to do it now Bleeding is minimal No fever/ chills/ CP/ SOB/ N&V/ Leg pain BP 100/60, Pulse 80 PE: General: Alert, orientedx3, NAD CVS: S1S2 RRR Lungs; CTAB Abd: soft, NT, ND, BS+ Incisions: Clean, dry, intact Ext; NT, no edema AP: 22 yo s/p Lap. evacuation of blood, pod# 1 Admitted for pain control VSS Afebrile doing well Continue routine care Will check H&H now, if stable then advance diet Encourage ambulation All questions were answered Results & Data Vital Signs (Past 12 Hours) Vital Signs Temp Pulse Pulse Pulse Resp BP BP 09/04/18 07:50 36.9 C 86 16 86/48 L 09/04/18 05:35 36.9 C 87 18 92/54 L 09/04/18 05:02 79 16 98/49 L 09/04/18 03:24 91 H 18 105/58 L 09/04/18 02:15 36.7 C 84 16 105/63 Pulse Ox 09/04/18 07:50 100 09/04/18 05:35 99 09/04/18 05:02 98 09/04/18 03:24 98 09/04/18 02:15 100
[2018-09-04 11:38] LABS: Basophils # (auto) 0.03 K/uL (0-0.2); Basophils % (auto) 0.6 %; Eosinophils # (auto) 0.05 K/uL (0-0.5); Hematocrit (blood only) 22.9 % (37-47); Hemoglobin 7.9 g/dL (12.0-16.0); Lymphocytes # (auto) 2.01 K/uL (1.2-3.4); Mean Corpuscular Hgb Conc 34.5 g/dL (32-36); Mean Corpuscular Volume 93.9 fL (80-100); Mean Platelet Volume 9.7 fL (7.4-10.4); Monocytes # (auto) 0.51 K/uL (0.11-0.59); Monocytes % (auto) 9.9 %; Neutrophils # (auto) 2.56 K/uL (1.4-6.5); Neutrophils % (auto) 49.5 %; Platelet Count 126 K/uL (130-400); RDW Coefficient of Variation 12.2 % (11.5-14.5); RDW Standard Deviation 42.1 fL (36.4-46.3); Red Blood Count 2.44 M/uL (4.2-5.4); White Blood Count 5.16 K/uL (4.8-10.8)
[2018-09-04 12:11] LABS: RBC Morphology Unremarkable
[2018-09-04 13:49] LABS: Fibrinogen 238 mg/dl (184-400); INR 1.1 (0.9-1.1); Partial Thromboplastin Ratio 0.9; Partial Thromboplastin Time 25.2 Seconds (21.0-31.0); Prothrombin Time 11.1 Seconds (9.0-12.0)
[2018-09-04] MEDS: OXYCODONE/ACETAMINOPHEN 5mg/325mg TAB PO PRN ×2 (13:49→17:05)
--- NOTE | 2018-09-04 14:25 | Obstetrical Progress Note ---
Date of Service September 04, 2018 Subjective Patient has been doing well Ambulating Using BR Pains is much better VSS Afebrile Her H&H dropped 09/04/18 09/04/18 09/04/18 Range/Units 13:16 11:29 02:40 WBC 5.16 (4.8-10.8) K/uL RBC 2.44 L (4.2-5.4) M/uL Hgb 7.9 L (12.0-16.0) g/dL POC Hgb 8.5 L (12.0-16.0) g/dl Hct 22.9 L (37-47) % POC Hct 25 L (37-47) % MCV 93.9 (80-100) fL MCH 32.4 (25-34) pg MCHC 34.5 (32-36) g/dL RDW Std Deviation 42.1 (36.4-46.3) fL RDW Coeff of Tyler 12.2 (11.5-14.5) % Plt Count 126 L (130-400) K/uL MPV 9.7 (7.4-10.4) fL Immature Gran % (Auto) 0.0 % Neut % (Auto) 49.5 % Lymph % (Auto) 39.0 % Antelope % (Auto) 9.9 % Eos % (Auto) 1.0 % Baso % (Auto) 0.6 % Immature Gran # (Auto) 0.00 (0.00-0.02) K/uL Neut # (Auto) 2.56 (1.4-6.5) K/uL Lymph # (Auto) 2.01 (1.2-3.4) K/uL Antelope # (Auto) 0.51 (0.11-0.59) K/uL Eos # (Auto) 0.05 (0-0.5) K/uL Baso # (Auto) 0.03 (0-0.2) K/uL RBC Morphology Unremarkable PT 11.1 (9.0-12.0) Seconds INR 1.1 (0.9-1.1) APTT 25.2 (21.0-31.0) Seconds PTT Ratio 0.9 Fibrinogen 238 (184-400) mg/dl POC Sodium 138 (135-144) mEq/L Sodium (136-145) mmol/L POC Potassium 3.5 (3.3-5.0) mEq/L Potassium (3.5-5.1) mmol/L POC Chloride 105 (101-112) mEq/L Chloride (98-107) mmol/L Carbon Dioxide (21-32) mmol/L POC Total CO2 19 L (24-31) mEq/l Anion Gap (3-11) POC Anion Gap 18.0 (16-25) mmol/L POC BUN 12 (7-18) mg/dl BUN (7-18) mg/dl Creatinine (0.6-1.2) mg/dl POC Creatinine 0.7 mg/dl Est Cr Clr Drug Dosing ml/min Est GFR ( Amer) Est GFR (Non-Af Amer) BUN/Creatinine Ratio (10-20) Glucose (70-99) mg/dl POC Glucose (other) 103 H (70-99) mg/dl Calcium (8.5-10.1) mg/dl POC Ioniz Calcium Berny 1.14 mmol/l Total Bilirubin (0.2-1) mg/dl AST (15-37) U/L ALT (12-78) U/L Alkaline Phosphatase (45-117) U/L Total Protein (6.4-8.2) gm/dl Albumin (3.4-5.0) gm/dl Globulin (2.5-4.0) gm/dl Albumin/Globulin Ratio (0.9-2) Lipase (73-393) U/L Urine Color Urine Appearance (Clear) Urine pH (4.5-7.5) Ur Specific Loyal (1.000-1.030) Urine Protein (Negative) Urine Glucose (UA) (Negative) Urine Ketones (Negative) Urine Blood (Negative) Urine Nitrite (Negative) Urine Bilirubin (Negative) Urine Urobilinogen (Negative) Ur Leukocyte Esterase (Negative) Urine WBC (Auto) (0-5) /hpf Urine RBC (Auto) (0-4) /hpf U Hyaline Cast (Auto) (0-5) /lpf U Epithel Cells (Auto) (0-5) /lpf Urine Bacteria (Auto) (Negative) Urine Yeast POC Ur Test (NEG) Blood Type Antibody Screen 09/04/18 09/04/18 09/04/18 Range/Units 02:37 02:37 02:37 WBC (4.8-10.8) K/uL RBC (4.2-5.4) M/uL Hgb (12.0-16.0) g/dL POC Hgb (12.0-16.0) g/dl Hct (37-47) % POC Hct (37-47) % MCV (80-100) fL MCH (25-34) pg MCHC (32-36) g/dL RDW Std Deviation (36.4-46.3) fL RDW Coeff of Tyler (11.5-14.5) % Plt Count (130-400) K/uL MPV (7.4-10.4) fL Immature Gran % (Auto) % Neut % (Auto) % Lymph % (Auto) % Antelope % (Auto) % Eos % (Auto) % Baso % (Auto) % Immature Gran # (Auto) (0.00-0.02) K/uL Neut # (Auto) (1.4-6.5) K/uL Lymph # (Auto) (1.2-3.4) K/uL Antelope # (Auto) (0.11-0.59) K/uL Eos # (Auto) (0-0.5) K/uL Baso # (Auto) (0-0.2) K/uL RBC Morphology PT (9.0-12.0) Seconds INR (0.9-1.1) APTT (21.0-31.0) Seconds PTT Ratio Fibrinogen (184-400) mg/dl POC Sodium (135-144) mEq/L Sodium (136-145) mmol/L POC Potassium (3.3-5.0) mEq/L Potassium (3.5-5.1) mmol/L POC Chloride (101-112) mEq/L Chloride (98-107) mmol/L Carbon Dioxide (21-32) mmol/L POC Total CO2 (24-31) mEq/l Anion Gap (3-11) POC Anion Gap (16-25) mmol/L POC BUN (7-18) mg/dl BUN (7-18) mg/dl Creatinine (0.6-1.2) mg/dl POC Creatinine mg/dl Est Cr Clr Drug Dosing ml/min Est GFR ( Amer) Est GFR (Non-Af Amer) BUN/Creatinine Ratio (10-20) Glucose (70-99) mg/dl POC Glucose (other) (70-99) mg/dl Calcium (8.5-10.1) mg/dl POC Ioniz Calcium Berny mmol/l Total Bilirubin (0.2-1) mg/dl AST (15-37) U/L ALT (12-78) U/L Alkaline Phosphatase (45-117) U/L Total Protein (6.4-8.2) gm/dl Albumin (3.4-5.0) gm/dl Globulin (2.5-4.0) gm/dl Albumin/Globulin Ratio (0.9-2) Lipase (73-393) U/L Urine Color Yellow Urine Appearance Cloudy A (Clear) Urine pH 6.0 (4.5-7.5) Ur Specific Loyal 1.012 (1.000-1.030) Urine Protein Negative (Negative) Urine Glucose (UA) Negative (Negative) Urine Ketones Negative (Negative) Urine Blood 3+ H (Negative) Urine Nitrite Negative (Negative) Urine Bilirubin Negative (Negative) Urine Urobilinogen Negative (Negative) Ur Leukocyte Esterase Trace H (Negative) Urine WBC (Auto) 1-5 (0-5) /hpf Urine RBC (Auto) 0-4 (0-4) /hpf U Hyaline Cast (Auto) 1-5 (0-5) /lpf U Epithel Cells (Auto) >30 H (0-5) /lpf Urine Bacteria (Auto) Negative (Negative) Urine Yeast Not Reportable POC Ur Test NEG (NEG) Blood Type O Positive Antibody Screen NEGATIVE 09/04/18 09/04/18 Range/Units 02:37 02:37 WBC 11.18 H (4.8-10.8) K/uL RBC 2.86 L (4.2-5.4) M/uL Hgb 9.1 L (12.0-16.0) g/dL POC Hgb (12.0-16.0) g/dl Hct 26.3 L (37-47) % POC Hct (37-47) % MCV 92.0 (80-100) fL MCH 31.8 (25-34) pg MCHC 34.6 (32-36) g/dL RDW Std Deviation 41.0 (36.4-46.3) fL RDW Coeff of Tyler 12.1 (11.5-14.5) % Plt Count 178 (130-400) K/uL MPV 10.7 H (7.4-10.4) fL Immature Gran % (Auto) 0.2 % Neut % (Auto) 68.7 % Lymph % (Auto) 21.6 % Antelope % (Auto) 8.8 % Eos % (Auto) 0.4 % Baso % (Auto) 0.3 % Immature Gran # (Auto) 0.02 (0.00-0.02) K/uL Neut # (Auto) 7.68 H (1.4-6.5) K/uL Lymph # (Auto) 2.42 (1.2-3.4) K/uL Antelope # (Auto) 0.98 H (0.11-0.59) K/uL Eos # (Auto) 0.05 (0-0.5) K/uL Baso # (Auto) 0.03 (0-0.2) K/uL RBC Morphology PT (9.0-12.0) Seconds INR (0.9-1.1) APTT (21.0-31.0) Seconds PTT Ratio Fibrinogen (184-400) mg/dl POC Sodium (135-144) mEq/L Sodium 138 (136-145) mmol/L POC Potassium (3.3-5.0) mEq/L Potassium 3.5 (3.5-5.1) mmol/L POC Chloride (101-112) mEq/L Chloride 110 H (98-107) mmol/L Carbon Dioxide 21 (21-32) mmol/L POC Total CO2 (24-31) mEq/l Anion Gap 7.0 (3-11) POC Anion Gap (16-25) mmol/L POC BUN (7-18) mg/dl BUN 13 (7-18) mg/dl Creatinine 0.78 (0.6-1.2) mg/dl POC Creatinine mg/dl Est Cr Clr Drug Dosing 116.1 ml/min Est GFR ( Amer) 126.8 Est GFR (Non-Af Amer) 109.4 BUN/Creatinine Ratio 16.4 (10-20) Glucose 96 (70-99) mg/dl POC Glucose (other) (70-99) mg/dl Calcium 8.3 L (8.5-10.1) mg/dl POC Ioniz Calcium Berny mmol/l Total Bilirubin 0.6 (0.2-1) mg/dl AST 14 L (15-37) U/L ALT 23 (12-78) U/L Alkaline Phosphatase 47 (45-117) U/L Total Protein 6.7 (6.4-8.2) gm/dl Albumin 3.8 (3.4-5.0) gm/dl Globulin 2.9 (2.5-4.0) gm/dl Albumin/Globulin Ratio 1.3 (0.9-2) Lipase 124 (73-393) U/L Urine Color Urine Appearance (Clear) Urine pH (4.5-7.5) Ur Specific Loyal (1.000-1.030) Urine Protein (Negative) Urine Glucose (UA) (Negative) Urine Ketones (Negative) Urine Blood (Negative) Urine Nitrite (Negative) Urine Bilirubin (Negative) Urine Urobilinogen (Negative) Ur Leukocyte Esterase (Negative) Urine WBC (Auto) (0-5) /hpf Urine RBC (Auto) (0-4) /hpf U Hyaline Cast (Auto) (0-5) /lpf U Epithel Cells (Auto) (0-5) /lpf Urine Bacteria (Auto) (Negative) Urine Yeast POC Ur Test (NEG) Blood Type Antibody Screen Bed size US was ordered, negative Minimal clear fluid in culde sac, none in upper abdomen It is expected as postop I discussed the case with Dr. Fuentes Plan to follow H&H in evening and am Results & Data Vital Signs (Past 12 Hours) Vital Signs Temp Pulse Pulse Resp BP Pulse Ox 09/04/18 11:20 100/64 09/04/18 11:00 36.7 C 81 20 93/56 L 99 09/04/18 07:50 36.9 C 86 16 86/48 L 100 09/04/18 05:35 36.9 C 87 18 92/54 L 99 09/04/18 05:02 79 16 98/49 L 98 09/04/18 03:24 91 H 18 105/58 L 98
--- NOTE | 2018-09-04 14:42 | Ultrasound Report ---
ULTRASOUND ASCITES CHECK CLINICAL HISTORY: Postoperative drop in hematocrit. COMPARISON STUDY: Abdominal CT performed the same day 09/04/2018. FINDINGS: Real-time grayscale sonography of all 4 quadrants of the abdomen is performed. There is a s mall volume of free fluid identified in the right lower quadrant. IMPRESSION: There is a small volume of free fluid identified in the right lower quadrant. Electronically signed by: Bakari Gomez M.D. 09/04/2018 2:41 PM
--- NOTE | 2018-09-04 14:45 | Ultrasound Report ---
ULTRASOUND OF THE PELVIS CLINICAL HISTORY: Postoperative drop in hematocrit. COMPARISON STUDY: Pelvic CT dated 09/04/2018. Pelvic ultrasound dated 09/02/2018. TECHNIQUE: Real-time, grayscale, and color flow sonography of the pelvis is performed transabdominall y. Images are reviewed in the transverse and longitudinal planes. FINDINGS: Uterus: The uterus is normal in size and echotexture, measuring 8.7 x 3.1 x 4.2 cm. Endometrium: The endometrium is normal in appearance, and the endometrial stripe is normal in thickne ss measuring up to 0.3 cm. Ovaries: The ovaries are normal in size and morphology. The right ovary measures 2.3 x 2.0 x 1.6 cm a nd the left ovary measures 3.0 x 2.0 x 2.1 cm. Follicles are seen bilaterally. Normal Doppler wavefor ms are shown within both ovaries. Pelvis: There is a small volume of free fluid in the pelvis, greatest the right lower quadrant. No co ncerning adnexal lesion is seen. IMPRESSION: 1. Unremarkable sonographic assessment of the uterus and ovaries. 2. There is a small volume of free fluid in the pelvis, greatest in the right lower quadrant. Electronically signed by: Bakari Gomez M.D. 09/04/2018 2:44 PM
[2018-09-04] MEDS: IBUPROFEN 600 MG TAB PO PRN ×2 (17:05→22:35)
[2018-09-04 17:12] LABS: Hemoglobin 7.6 g/dL (12.0-16.0)
[2018-09-05] MEDS: IBUPROFEN 600 MG TAB PO PRN (05:26)
[2018-09-05] MEDS: LACTATED RINGER'S 1,000 ML IV SCH (05:28)
[2018-09-05] MEDS: METOCLOPRAMIDE HCL INJ 5 MG/ML 2 ML VIAL IV SCH (05:28)
[2018-09-05 06:47] LABS: Basophils # (auto) 0.03 K/uL (0-0.2); Basophils % (auto) 0.7 %; Eosinophils # (auto) 0.09 K/uL (0-0.5); Eosinophils % (auto) 2.2 %; Hematocrit (blood only) 23.4 % (37-47); Hemoglobin 7.8 g/dL (12.0-16.0); Immature Granulocytes # (auto) 0.01 K/uL (0.00-0.02); Immature Granulocytes % (auto) 0.2 %; Lymphocytes # (auto) 1.73 K/uL (1.2-3.4); Lymphocytes % (auto) 41.5 %; Mean Corpuscular Hgb Conc 33.3 g/dL (32-36); Mean Corpuscular Volume 95.5 fL (80-100); Mean Platelet Volume 10.5 fL (7.4-10.4); Monocytes # (auto) 0.34 K/uL (0.11-0.59); Monocytes % (auto) 8.2 %; Neutrophils # (auto) 1.97 K/uL (1.4-6.5); Neutrophils % (auto) 47.2 %; Platelet Count 139 K/uL (130-400); RDW Coefficient of Variation 12.4 % (11.5-14.5); RDW Standard Deviation 42.8 fL (36.4-46.3); Red Blood Count 2.45 M/uL (4.2-5.4); White Blood Count 4.17 K/uL (4.8-10.8)
[2018-09-05 07:16] LABS: RBC Morphology Unremarkable
--- NOTE | 2018-09-05 08:47 | Surgery Progress Note ---
Date of Service September 05, 2018 Subjective feeling much better passing gas tolerating diet Physical Exam Constitutional: WD/WN, vitals as above comfortable Gastrointestinal (Abdomen): normal bowel sounds, soft, nontender, no hepatosplenomegaly Inspection/Auscultation: abdomen normal to inspection steri-strips removed incisions clean dry and intact Skin: no rashes, warm and dry Results & Data Vital Signs (Past 12 Hours) Vital Signs Temp Pulse Resp BP Pulse Ox 09/05/18 08:20 37.3 C 88 18 106/71 100 09/05/18 05:30 37.1 C 87 18 106/69 100 09/04/18 23:20 37.1 C 94 H 16 96/59 L 98
[2018-09-05] MEDS: DOCUSATE SODIUM 100 MG CAP PO SCH (09:02)
--- NOTE | 2018-09-07 02:58 | Discharge Summary ---
HISTORY OF PRESENT ILLNESS: This patient is a 22-year-old female who is status post laparoscopic evacuation of blood from the peritoneum and cauterization of ovary from ruptured hemorrhagic corpus luteum cyst on 09/03/2018 and 2:00 a.m. The surgery was done by Dr. Fuentes. She was doing well. She was discharged on 09/03/2018 in the afternoon after she ate lunch. The same night at 11 pm, her mother called me that she is having a lot of pain, not controlled with pain medications, Percocet nor Motrin. She was also having increased vaginal bleeding. I recommended her to come to Emergency Room. She came in on 09/04/2018 in the spindle carver. Her vital signs were stable. She was complaining of upper abdominal pain radiating to her shoulders, most likely from pain from the gas insufflation and she had CT scan which was consistent with postoperative changes. Her blood count, H and H were 9.1 and 26.3. White count was 11. She received morphine and her pain got better and she was recommended to stay overnight for observation for serial blood counts and examinations. She was admitted on 09/04/2018 morning to fourth floor. She was started on pain medications and she had repeat blood counts. In the morning, she was feeling much better. Her pain was minimal. She was ambulating, tolerating diet and she was voiding without difficulty. She was passing gas. Vital signs were stable, afebrile. She had repeat blood count in the morning, which came to 8.5 and 25. She was observed. She was doing well. We repeated another blood count at 11:30 a.m. on 09/04/2018. Her H and H were 7.9 and 22.9. She had bedside ultrasound by bottle house quality control technician. Her pelvis had minimal clear fluid and no collection in the pelvic or upper abdomen. She was monitored closely. She had a repeat H and H in the evening at 5:00 p.m. Her H and H were stable at 7.6 and 22. She was observed overnight and received I.V. fluids. She tolerated regular diet and in the morning, her repeat H and H were 7.8 and 23.4. She was seen by Dr. Fuentes in the morning. Her vital signs were stable, afebrile. Physical examination was unremarkable. Her abdomen was nontender and nondistended. Bowel sounds present. She was discharged home with pain medications and she is to be seen in the office as a followup. KELLEE
== END 2018-09-05 09:20 | disposition home or self-care (01) ==
LOC: 4N 02:12 → ED 02:12 → 4N 05:23